=== PATIENT | male | born 1960 | race Caucasian/White ===

== ENCOUNTER 2016-07-20 09:00 | Inpatient (IN) | payer OTHER ==
[2016-07-20 09:58] VITALS: BMI 24.9
--- NOTE | 2016-07-20 11:54 | HP ---
CIWA Score - CIWA Score Nausea/Vomitin Muscle Tremors: 3 Anxiety: 3 Agitation: 3 Paroxysmal Sweats: 2 Orientation: 0-Oriented Tacttile Disturbances: 2-Mild Itch/Numbness/Burn Auditory Disturbances: 2-Mild Harshness/Frighten Visual Disturbances: 2-Mild Sensitivity Headache: 2-Mild CIWA-Ar Total Score: 22 Admission ROS BHS - HPI Chief Complaint: I NEED HELP TO STOP DRINKING ALCOHOL Allergies/Adverse Reactions: Allergies Allergy/AdvReac Type Severity Reaction Status Date / Time No Known Allergies Allergy Verified 07/20/16 10:37 History of Present Illness: THIS 55 YEARS OLD MALE WITH ALCOHOL DEPENDENCE,WITHDRAWAL SYMPTOM,LAST DETOX [facility] 09/05/12 TO 09/09/12 SYNCOPE ALCOHOL RELATED GERD INSOMNIA LONGEST PERIOD OF SOBRIETY 6 MONTHS Exam Limitations: No Limitations - Ebola screening Have you traveled outside of the country in the last 21 days: No Have you been sick,other than usual withdrawal symptoms: No - Review of Systems Constitutional: Loss of Appetite, Malaise, Night Sweats, Changes in sleep, Weakness, Unintentional Wgt. Loss EENT: reports: Nose Congestion Respiratory: reports: No Symptoms reported Cardiac: reports: Palpitations GI: reports: Diarrhea, Nausea, Vomiting, Abdominal cramping : reports: No Symptoms Reported Musculoskeletal: reports: Back Pain, Muscle Pain Neuro: reports: Headache, Tremors Endocrine: reports: No Symptoms Reported Hematology: reports: No Symptoms Reported Psychiatric: reports: Depressed, other (INSOMNIA) Patient History - Patient Medical History Hx Anemia: No Hx Asthma: No Hx Chronic Obstructive Pulmonary Disease (COPD): No Hx Cancer: No Hx Cardiac Disorders: No Hx Congestive Heart Failure: No Hx Hypertension: No Hx Hypercholesterolemia: No Hx Pacemaker: No HX Cerebrovascular Accident: No Hx Seizures: No Hx Diabetes: No Hx Gastrointestinal Disorders: Yes (acid reflux) Hx Genitourinary Disorders: No Hx Sexually Transmitted Disorders: Yes (gonorrhea at age 14) Hx Renal Disease (ESRD): No Hx Thyroid Disease: No Hx Human Immunodeficiency Virus (HIV): No (LAST 2014 NEGATIVE) Hx Hepatitis C: No Hx Depression: Yes (NO MED) Hx Suicide Attempt: Yes (cut left arm at age 17) Hx Bipolar Disorder: No Hx Schizophrenia: No Other Medical History: NO SUICIDAL,NO HOMICIDAL - Patient Surgical History Past Surgical History: Yes Hx Abdominal Surgery: Yes (left inguinal and umbilical hernia) Hx Appendectomy: No Hx Cholecystectomy: No Hx Genitourinary Surgery: No Hx Section: No Hx Orthopedic Surgery: No Other Surgical History: L inguinal hernia with mesh in 2010 Anesthesia Reaction: No - PPD History Previous Implant?: Yes Documented Results: Positive w/o proof PPD to be Administered?: No - Smoking Cessation Smoking history: Former smoker Have you smoked in the past 12 months: No Aproximately how many cigarettes per day: 0 If you are a former smoker, when did you quit?: 20 yrs. ago Cigars Per Day: 0 Hx Chewing Tobacco Use: No Initiated information on smoking cessation: No 'Breaking Loose' booklet given: 07/20/16 - Substance & Tx. History Hx Alcohol Use: Yes Hx Substance Use: No Substance Use Type: Alcohol Hx Substance Use Treatment: Yes ([facility] 09/05/12 TO 09/09/12) - Substances Abused Alcohol-beer Route: Oral Frequency: Daily Amount used: 1-2 6 pks. Age of first use: 13 Date of Last Use: 07/20/16 Family Disease History - Family Disease History Family Disease History: CA: Father (ALCOHOL,,LUNG CA), Other: Father, Mother (ALCOHOL), Brother (ALCOHOL,DSA), Sister (ALCOHOL,DSA) Admission Physical Exam S - Vital Signs Vital Signs: Vital Signs - 24 hr 07/20/16 09:55 Temperature 96.3 F L Pulse Rate 91 H Respiratory 20 Rate Blood Pressure 132/95 - Physical General Appearance: Yes: Moderate Distress, Tremorous, Irritable, Sweating, Anxious HEENTM: Yes: Nasal Congestion Respiratory: Yes: Lungs Clear Neck: Yes: Within Normal Limits Breast: Yes: Within Normal Limits Cardiology: Yes: Within Normal Limits, Regular Rhythm, Regular Rate, S1, S2 Abdominal: Yes: Within Normal Limits, Normal Bowel Sounds, Non Tender, Flat, Soft Genitourinary: Yes: Within Normal Limits Back: Yes: Muscle Spasm Musculoskeletal: Yes: Back pain, Joint Stiffness, Muscle Pain Extremities: Yes: Tremors 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 NML intact, Fully Oriented, Alert, Motor Strength 5/5 Integumentary: Yes: Dry Lymphatic: Yes: Within Normal Limits - Diagnostic (1) Alcohol dependence with uncomplicated withdrawal Current Visit: Yes Status: Acute (2) Syncope Current Visit: Yes Status: Acute (3) Weight loss Current Visit: Yes Status: Acute (4) Depression Current Visit: Yes Status: Acute (5) Insomnia Current Visit: Yes Status: Acute (6) Frequent falls Current Visit: Yes Status: Acute (7) History of inguinal hernia repair Current Visit: Yes Status: Acute (8) History of umbilical hernia repair Current Visit: Yes Status: Acute Cleared for Admission BHS - Detox or Rehab S Level of Care: Medically Managed Detox Regimen/Protocol: Librium BHS Breath Alcohol Content Breath Alcohol Content: 0.136 Urine Drug Screen - Results Drug Screen Negative: Yes
[2016-07-20] MEDS ORDERED: LOPERAMIDE HCL 2 MG CAPSULE PO PRN (12:06)
[2016-07-20] MEDS ORDERED: MENTHOL/PHENOL 1 EACH UD MM PRN (12:06)
[2016-07-20] MEDS ORDERED: chlordiazePOXIDE HCL 25 MG CAPSULE PO PRN (12:06)
[2016-07-20] MEDS ORDERED: MAG HYDROX/AL HYDROX/SIMETH 30 ML UNIT-DOSE CUP PO PRN (12:06)
[2016-07-20] MEDS ORDERED: IBUPROFEN 400 MG TABLET (FP) PO PRN (12:06)
[2016-07-20] MEDS ORDERED: MAGNESIUM CITRATE 300 ML BOTTLE PO PRN (12:06)
[2016-07-20] MEDS ORDERED: MAGNESIUM HYDROX 2400MG/30ML ORAL SUSPENSION 30 ML CUP PO PRN (12:06)
[2016-07-20] MEDS ORDERED: hydrOXYzine PAMOATE 50 MG CAPSULE (FP) PO PRN (12:06)
[2016-07-20] MEDS ORDERED: P-EPHED 60MG/TRIPROLIDI 2.5MG TABLET PO PRN (12:06)
[2016-07-20] MEDS ORDERED: guaiFENesin/D-METHORPHAN HB 10 ML UNIT-DOSE CUPS PO PRN (12:06)
[2016-07-20] MEDS ORDERED: chlordiazePOXIDE HCL 25 MG CAPSULE PO ONE (12:11)
[2016-07-20] MEDS: PANTOPRAZOLE 40 MG TABLET (FP) PO SCH (13:08)
[2016-07-20 16:28] LABS: URINE APPEARANCE CLEAR; URINE BILIRUBIN NEGATIVE (NEGATIVE); URINE BLOOD NEGATIVE (NEGATIVE); URINE COLOR STRAW; URINE GLUCOSE (UA) NEGATIVE (NEGATIVE); URINE KETONE NEGATIVE (NEGATIVE); URINE LEUK ESTERASE NEGATIVE (NEGATIVE); URINE NITRITE NEGATIVE (NEGATIVE); URINE PROTEIN NEGATIVE (NEGATIVE); URINE UROBILINOGEN NEGATIVE E.U./dl (0.2-1.0)
--- NOTE | 2016-07-20 16:42 | EKG ---
Test Reason : Blood Pressure : / mmHG Vent. Rate : 102 BPM Atrial Rate : 102 BPM P-R Int : 150 ms QRS Dur : 088 ms QT Int : 328 ms P-R-T Axes : 057 042 033 degrees QTc Int : 427 ms SINUS TACHYCARDIA OTHERWISE NORMAL ECG NO PREVIOUS ECGS AVAILABLE Confirmed by MD BRETT, CODY ([id number]) on 07/20/2016 4:41:42 PM Referred By: Jose Alberto Cancino Confirmed By:CODY WEST MD
[2016-07-20] MEDS: chlordiazePOXIDE HCL 25 MG CAPSULE PO SCH ×2 (17:16→22:09)
[2016-07-20] MEDS: diphenhydrAMINE HCL 50 MG CAPSULE PO PRN (22:09)
[2016-07-20] MEDS: THIAMINE HCL 100 MG TABLET (FP) PO SCH (22:09)
[2016-07-21] MEDS: chlordiazePOXIDE HCL 25 MG CAPSULE PO SCH ×4 (05:48→22:50)
[2016-07-21] MEDS: ACETAMINOPHEN 325 MG TABLET (FP) PO PRN ×2 (05:49→12:00)
[2016-07-21 10:07] LABS: MCH 33.6 pg (25.7-33.7); MCHC 33.5 g/dl (32.0-35.9); MEAN CELL VOLUME 100.1 fl (80-96); MEAN PLT VOLUME 10.1 fl (7.5-11.1); PLATELET COUNT 169 K/MM3 (134-434); RDW 13.3 % (11.9-15.9); WHITE BLOOD COUNT 7.7 K/mm3 (4.0-10.0)
[2016-07-21 10:20] LABS: ALBUMIN 3.9 g/dl (3.4-5.0); ANION GAP 14 (8-16); CALCIUM 8.2 mg/dL (8.5-10.1); CO2 21 mmol/L (21-32); GLUCOSE,RANDOM 104 mg/dL (74-106)
[2016-07-21 10:23] LABS: ALK PHOS 82 U/L (45-117); BILIRUBIN,TOTAL 0.7 mg/dL (0.2-1.0); CREATININE 0.9 mg/dL (0.7-1.3); SGOT/AST 161 U/L (15-37); SGPT/ALT 114 U/L (12-78); TOT PROT 7.5 g/dl (6.4-8.2)
[2016-07-21] MEDS: PRENATAL VITAMINS W/ FOLIC ACID TABLET (FP) PO SCH (11:13)
[2016-07-21] MEDS: PANTOPRAZOLE 40 MG TABLET (FP) PO SCH (11:13)
--- NOTE | 2016-07-21 11:26 | CONSULT ---
[facility] Psychiatric Consult - Data Date of interview: 07/21/16 Admission source: [facility] Identifying data: Readmission to [facility] for this 55 y/o male seeking detox treatment on for alcohol dependence.Patient is , a father of two,domiciled,unemployed and supported on welfare. Substance Abuse History: - Smoking Cessation. Smoking history: Former smoker. Have you smoked in the past 12 months: No. Aproximately how many cigarettes per day: 0. If you are a former smoker, when did you quit?: 20 yrs. ago. Cigars Per Day: 0. Hx Chewing Tobacco Use: No. Initiated information on smoking cessation: No. 'Breaking Loose' booklet given: 07/20/16. - Substance & Tx. History. Hx Alcohol Use: Yes. Hx Substance Use: No. Substance Use Type : Alcohol. Hx Substance Use Treatment: Yes ([facility] 09/05/12 TO 09/09/12). - Substances Abused. Alcohol-beer. Route: Oral. Frequency: Daily. Amount used: 1-2 6 pks. Age of first use: 13. Date of Last Use: 07/20/16. Confirmed by patient in my interview. Medical History: Remarkable for GERD,lower back pain,herniated disks in lumbar spine and a history of left inguinal/umbilical herniorraphy.Noted report of past treatment for gonorrhea (age 17). Psychiatric History: No reported history of psychiatric hospitalizations.Patient states that he is currently under the care of a private psychiatrist in the [place].Medicated with naltrexone and trazodone.Diagosed with Alcohol Dependence and Insomnia.Mr Peters admits to a remote history of suicide attempt (age 17) via self-mutilation (scars still visible on his left forearm). Physical/Sexual Abuse/Trauma History: Patient denies. Additional Comment: Drug Screen is negative. Mental Status Exam - Mental Status Exam Alert and Oriented to: Time, Place, Person Cognitive Function: Good Patient Appearance: Well Groomed Mood: Nervous, Anxious Affect: Mood Congruent Patient Behavior: Appropriate, Cooperative Speech Pattern: Clear, Appropriate Voice Loudness: Normal Thought Process: Goal Oriented Thought Disorder: Not Present Hallucinations: Denies Suicidal Ideation: Denies Homicidal Ideation: Denies Insight/Judgement: Fair Sleep: Poorly, Difficulty falling asleep Appetite: Good Muscle strength/Tone: Normal Gait/Station: Normal Psychiatric Findings - Problem List ([place] 1, 2,3) (1) Alcohol dependence with uncomplicated withdrawal Current Visit: Yes Status: Acute (2) History of inguinal hernia repair Current Visit: Yes Status: Chronic (3) History of umbilical hernia repair Current Visit: Yes Status: Chronic (4) Gastroesophageal reflux disease Current Visit: Yes Status: Chronic (5) Frequent falls Current Visit: Yes Status: Chronic (6) Insomnia Current Visit: Yes Status: Chronic - Initial Treatment Plan Initial Treatment Plan: Psychoeducation.Detoxification.Trazodone 50 mg po hs.Patient is made aware of the risk of priapism and advised to stop that medication/seek immediate medical help if painful/prolonged erection.Patient agrees with this plan.Observation.
--- NOTE | 2016-07-21 12:16 | PN ---
S CIWA - CIWA Score Nausea/Vomitin Muscle Tremors: 3 Anxiety: 3 Agitation: 2 Paroxysmal Sweats: 2 Orientation: 0-Oriented Tacttile Disturbances: 1-Very Mild Itch/Numbness Auditory Disturbances: 0-None Visual Disturbances: 2-Mild Sensitivity Headache: 2-Mild CIWA-Ar Total Score: 18 S Progress Note (SOAP) Subjective: shakes, sweats, diarrhea, irritability, unwitnessed bloody stool Objective: 07/21/16 12:14 Vital Signs - 8 hr 07/21/16 07/21/16 06:00 10:00 Temperature 98.1 F 97.9 F Pulse Rate 77 95 H Respiratory 18 16 Rate Blood Pressure 99/63 124/77 Laboratory Last Values WBC 7.7 K/mm3 (4.0-10.0) D 07/21/16 06:20 RBC 3.88 M/mm3 (4.00-5.60) L 07/21/16 06:20 Hgb 13.0 GM/dL (11.7-16.9) D 07/21/16 06:20 Hct 38.9 % (35.4-49) 07/21/16 06:20 MCV 100.1 fl (80-96) H 07/21/16 06:20 MCHC 33.5 g/dl (32.0-35.9) 07/21/16 06:20 RDW 13.3 % (11.9-15.9) 07/21/16 06:20 Plt Count 169 K/MM3 (134-434) D 07/21/16 06:20 MPV 10.1 fl (7.5-11.1) 07/21/16 06:20 Sodium 135 mmol/L (136-145) L 07/21/16 06:20 Potassium 4.2 mmol/L (3.5-5.1) 07/21/16 06:20 Chloride 100 mmol/L (98-107) 07/21/16 06:20 Carbon Dioxide 21 mmol/L (21-32) 07/21/16 06:20 Anion Gap 14 (8-16) 07/21/16 06:20 BUN 8 mg/dL (7-18) 07/21/16 06:20 Creatinine 0.9 mg/dL (0.7-1.3) 07/21/16 06:20 Creat Clearance w eGFR > 60 (>60) 07/21/16 06:20 Random Glucose 104 mg/dL (74-106) 07/21/16 06:20 Calcium 8.2 mg/dL (8.5-10.1) L 07/21/16 06:20 Total Bilirubin 0.7 mg/dL (0.2-1.0) 07/21/16 06:20 AST 161 U/L (15-37) H D 07/21/16 06:20 ALT 114 U/L (12-78) H D 07/21/16 06:20 Alkaline Phosphatase 82 U/L (45-117) 07/21/16 06:20 Total Protein 7.5 g/dl (6.4-8.2) 07/21/16 06:20 Albumin 3.9 g/dl (3.4-5.0) 07/21/16 06:20 Urine Color Straw 07/20/16 14:00 Urine Appearance Clear 07/20/16 14:00 Urine pH 6.0 (5.0-8.0) 07/20/16 14:00 Ur Specific [place] 1.005 (1.001-1.035) 07/20/16 14:00 Urine Protein Negative (NEGATIVE) 07/20/16 14:00 Urine Glucose (UA) Negative (NEGATIVE) 07/20/16 14:00 Urine Ketones Negative (NEGATIVE) 07/20/16 14:00 Urine Blood Negative (NEGATIVE) 07/20/16 14:00 Urine Nitrite Negative (NEGATIVE) 07/20/16 14:00 Urine Bilirubin Negative (NEGATIVE) 07/20/16 14:00 Urine Urobilinogen Negative E.U./dl (0.2-1.0) 07/20/16 14:00 Ur Leukocyte Esterase Negative (NEGATIVE) 07/20/16 14:00 Hepatitis C Antibody <0.1 s/co ratio (0.0-0.9) 07/20/16 12:00 Labs noted Assessment: 07/21/16 12:14 withdrawal sx pt. reports bloody stool this morning Plan: continue detox instructed pt to have staff inspect stool if further bleeding episodes
[2016-07-21] MEDS: diphenhydrAMINE HCL 50 MG CAPSULE PO PRN (22:50)
[2016-07-21] MEDS: THIAMINE HCL 100 MG TABLET (FP) PO SCH (22:50)
[2016-07-21] MEDS: traZODone HCL 50 MG TABLET (FP) PO SCH (22:50)
[2016-07-22] MEDS: chlordiazePOXIDE HCL 25 MG CAPSULE PO SCH ×2 (06:58→10:31)
[2016-07-22] MEDS: ACETAMINOPHEN 325 MG TABLET (FP) PO PRN (06:59)
[2016-07-22] MEDS ORDERED: IBUPROFEN 400 MG TABLET (FP) PO PRN (10:27)
[2016-07-22] MEDS: PRENATAL VITAMINS W/ FOLIC ACID TABLET (FP) PO SCH (10:31)
[2016-07-22] MEDS: PANTOPRAZOLE 40 MG TABLET (FP) PO SCH (10:31)
--- NOTE | 2016-07-22 11:39 | PN ---
S CIWA - CIWA Score Nausea/Vomitin Muscle Tremors: 3 Anxiety: 4-Mod. Anxious/Guarded Agitation: 4-Moderately Restless Paroxysmal Sweats: No Perspiration Orientation: 3-Disoriented Date>2 days Tacttile Disturbances: 1-Very Mild Itch/Numbness Auditory Disturbances: 0-None Visual Disturbances: 0-None Headache: 4-Moderately Severe CIWA-Ar Total Score: 22 BHS Progress Note (SOAP) Subjective: Restless, Tremors, Body Aches, Interrupted Sleep, Diarrhea Objective: 07/22/16 11:38 Vital Signs Temperature 97.0 F L 07/22/16 10:00 Pulse Rate 96 H 07/22/16 10:00 Respiratory Rate 18 07/22/16 10:00 Blood Pressure 113/80 07/22/16 10:00 O2 Sat by Pulse Oximetry (%) Laboratory Last Values WBC 7.7 K/mm3 (4.0-10.0) D 07/21/16 06:20 RBC 3.88 M/mm3 (4.00-5.60) L 07/21/16 06:20 Hgb 13.0 GM/dL (11.7-16.9) D 07/21/16 06:20 Hct 38.9 % (35.4-49) 07/21/16 06:20 MCV 100.1 fl (80-96) H 07/21/16 06:20 MCHC 33.5 g/dl (32.0-35.9) 07/21/16 06:20 RDW 13.3 % (11.9-15.9) 07/21/16 06:20 Plt Count 169 K/MM3 (134-434) D 07/21/16 06:20 MPV 10.1 fl (7.5-11.1) 07/21/16 06:20 Sodium 135 mmol/L (136-145) L 07/21/16 06:20 Potassium 4.2 mmol/L (3.5-5.1) 07/21/16 06:20 Chloride 100 mmol/L (98-107) 07/21/16 06:20 Carbon Dioxide 21 mmol/L (21-32) 07/21/16 06:20 Anion Gap 14 (8-16) 07/21/16 06:20 BUN 8 mg/dL (7-18) 07/21/16 06:20 Creatinine 0.9 mg/dL (0.7-1.3) 07/21/16 06:20 Creat Clearance w eGFR > 60 (>60) 07/21/16 06:20 Random Glucose 104 mg/dL (74-106) 07/21/16 06:20 Calcium 8.2 mg/dL (8.5-10.1) L 07/21/16 06:20 Total Bilirubin 0.7 mg/dL (0.2-1.0) 07/21/16 06:20 AST 161 U/L (15-37) H D 07/21/16 06:20 ALT 114 U/L (12-78) H D 07/21/16 06:20 Alkaline Phosphatase 82 U/L (45-117) 07/21/16 06:20 Total Protein 7.5 g/dl (6.4-8.2) 07/21/16 06:20 Albumin 3.9 g/dl (3.4-5.0) 07/21/16 06:20 Urine Color Straw 07/20/16 14:00 Urine Appearance Clear 07/20/16 14:00 Urine pH 6.0 (5.0-8.0) 07/20/16 14:00 Ur Specific [place] 1.005 (1.001-1.035) 07/20/16 14:00 Urine Protein Negative (NEGATIVE) 07/20/16 14:00 Urine Glucose (UA) Negative (NEGATIVE) 07/20/16 14:00 Urine Ketones Negative (NEGATIVE) 07/20/16 14:00 Urine Blood Negative (NEGATIVE) 07/20/16 14:00 Urine Nitrite Negative (NEGATIVE) 07/20/16 14:00 Urine Bilirubin Negative (NEGATIVE) 07/20/16 14:00 Urine Urobilinogen Negative E.U./dl (0.2-1.0) 07/20/16 14:00 Ur Leukocyte Esterase Negative (NEGATIVE) 07/20/16 14:00 RPR Titer Nonreactive (NONREACTIVE) 07/21/16 06:20 Hepatitis C Antibody <0.1 s/co ratio (0.0-0.9) 07/20/16 12:00 labs noted Assessment: Withdrawal Symptoms Plan: Continue Detox
[2016-07-22] MEDS: chlordiazePOXIDE 5 MG CAPSULE PO SCH ×2 (17:08→22:38)
[2016-07-22] MEDS: THIAMINE HCL 100 MG TABLET (FP) PO SCH (22:38)
[2016-07-22] MEDS: traZODone HCL 50 MG TABLET (FP) PO SCH (22:38)
[2016-07-23] MEDS: chlordiazePOXIDE 5 MG CAPSULE PO SCH ×2 (06:00→10:20)
[2016-07-23] MEDS: ACETAMINOPHEN 325 MG TABLET (FP) PO PRN ×2 (06:02→17:54)
[2016-07-23] MEDS: PRENATAL VITAMINS W/ FOLIC ACID TABLET (FP) PO SCH (10:20)
[2016-07-23] MEDS: PANTOPRAZOLE 40 MG TABLET (FP) PO SCH (10:20)
--- NOTE | 2016-07-23 11:49 | PN ---
BHS Progress Note (SOAP) Subjective: interrupted sleep, knee pains and left shoulder pains Objective: 07/23/16 11:52 Vital Signs Temperature 97.2 F L 07/23/16 10:16 Pulse Rate 96 H 07/23/16 10:16 Respiratory Rate 20 07/23/16 10:16 Blood Pressure 122/80 07/23/16 10:16 O2 Sat by Pulse Oximetry (%) Laboratory Tests 07/20/16 07/20/16 07/21/16 12:00 14:00 06:20 WBC 7.7 D RBC 3.88 L Hgb 13.0 D Hct 38.9 MCV 100.1 H MCHC 33.5 RDW 13.3 Plt Count 169 D MPV 10.1 Sodium Potassium Chloride Carbon Dioxide Anion Gap BUN Creatinine Creat Clearance w eGFR Random Glucose Calcium Total Bilirubin AST ALT Alkaline Phosphatase Total Protein Albumin Urine Color Straw Urine Appearance Clear Urine pH 6.0 Ur Specific [place] 1.005 Urine Protein Negative Urine Glucose (UA) Negative Urine Ketones Negative Urine Blood Negative Urine Nitrite Negative Urine Bilirubin Negative Urine Urobilinogen Negative Ur Leukocyte Esterase Negative RPR Titer Hepatitis C Antibody <0.1 07/21/16 07/21/16 06:20 06:20 WBC RBC Hgb Hct MCV MCHC RDW Plt Count MPV Sodium 135 L Potassium 4.2 Chloride 100 Carbon Dioxide 21 Anion Gap 14 BUN 8 Creatinine 0.9 Creat Clearance w eGFR > 60 Random Glucose 104 Calcium 8.2 L Total Bilirubin 0.7 AST 161 H D ALT 114 H D Alkaline Phosphatase 82 Total Protein 7.5 Albumin 3.9 Urine Color Urine Appearance Urine pH Ur Specific [place] Urine Protein Urine Glucose (UA) Urine Ketones Urine Blood Urine Nitrite Urine Bilirubin Urine Urobilinogen Ur Leukocyte Esterase RPR Titer Nonreactive Hepatitis C Antibody pt aox3 in nad ambulating Assessment: 07/23/16 11:53 withdrawl sx's juanito knee pain rt shoulder pain Plan: cont. deetox increase fluids xray kees juanito analgesic balm cane
[2016-07-23] MEDS: chlordiazePOXIDE HCL 10 MG CAPSULE PO SCH ×2 (17:53→22:22)
[2016-07-23] MEDS ORDERED: METHYL SALICYLATE/MENTHOL OINT 30 GM TUBE TP SCH (22:00)
[2016-07-23] MEDS: THIAMINE HCL 100 MG TABLET (FP) PO SCH (22:21)
[2016-07-23] MEDS: diphenhydrAMINE HCL 50 MG CAPSULE PO PRN (22:22)
[2016-07-23] MEDS: traZODone HCL 50 MG TABLET (FP) PO SCH (22:22)
[2016-07-24] MEDS: chlordiazePOXIDE HCL 10 MG CAPSULE PO SCH (05:40)
[2016-07-24 06:29] VITALS: BP 110/70; PULSE 65; TEMP 97
--- NOTE | 2016-07-24 09:01 | DS ---
[facility] Detox Discharge Summary Admission Date: 07/20/16 Discharge Date: 07/24/16 - History Present History: Alcohol Dependence - Physical Exam Results Vital Signs: Vital Signs Temperature 97 F L 07/24/16 06:28 Pulse Rate 65 07/24/16 06:28 Respiratory Rate 16 07/24/16 06:28 Blood Pressure 110/70 07/24/16 06:28 O2 Sat by Pulse Oximetry (%) - Treatment Hospital Course: Detox Protocol Followed, Detoxed Safely, Responded well, Discharged Condition Good, Rehab Referral Accepted - Medication Discharge Medications: Ambulatory Orders Omeprazole Magnesium [Prilosec (OTC)] 20 mg PO DAILY 09/05/12 Naltrexone HCl [Revia -] 50 mg PO DAILY 07/20/16 Trazodone HCl [Desyrel -] 50 mg PO HS 07/20/16 Trazodone HCl [Desyrel -] 50 mg PO HS #30 tablet 07/21/16 - Diagnosis (1) Alcohol dependence with uncomplicated withdrawal Current Visit: Yes Status: Chronic (2) Depression Current Visit: Yes Status: Chronic (3) Syncope Current Visit: Yes Status: Acute (4) Weight loss Current Visit: Yes Status: Acute (5) Frequent falls Current Visit: Yes Status: Chronic (6) Gastroesophageal reflux disease Current Visit: Yes Status: Chronic (7) History of inguinal hernia repair Current Visit: Yes Status: Chronic (8) History of umbilical hernia repair Current Visit: Yes Status: Chronic (9) Insomnia Current Visit: Yes Status: Chronic - AMA Did Patient Leave Against Medical Advice: No
[2016-07-24] MEDS: PRENATAL VITAMINS W/ FOLIC ACID TABLET (FP) PO SCH (09:11)
[2016-07-24] MEDS: PANTOPRAZOLE 40 MG TABLET (FP) PO SCH (09:11)
== END 2016-07-24 09:28 | disposition home or self-care (01) | DRG 775 ==
LOC: YASAS 09:00 → Y6N 11:50
PROVIDERS: ADMIT Internal Medicine; ATTEND Internal Medicine
PROC: HZ2ZZZZ Detoxification Services for Substance Abuse Treatment (ICD-10-PCS; principal; 2016-07-20)
DX: F10.230 Alcohol dependence with withdrawal, uncomplicated (principal); F32.9 Major depressive disorder, single episode, unspecified; G47.00 Insomnia, unspecified; K21.9 Gastro-esophageal reflux disease without esophagitis; M25.511 Pain in right shoulder; M25.562 Pain in left knee; M25.561 Pain in right knee; R29.6 Repeated falls; Z86.79 Personal history of other diseases of the circulatory system; Z87.898 Personal history of other specified conditions; Z87.438 Personal history of other diseases of male genital organs; Z87.891 Personal history of nicotine dependence; Z91.5 Personal history of self-harm
CPT/HCPCS: 36415; 71020-TC; 73560-TC-LT; 73560-TC-RT; 80053; 81003; 85027; 86593; 93005; 93010

== ENCOUNTER 2018-01-09 17:30 | Inpatient (IN) | payer OTHER ==
--- NOTE | 2018-01-09 17:37 | PDOC ---
History of Present Illness - General Chief Complaint: Weakness Stated Complaint: WEAKNESS Time Seen by Provider: 01/09/18 17:36 History Source: Patient Exam Limitations: No Limitations - History of Present Illness Initial Comments: Pt presenting via EMS for nausea, vomiting, diarrhea, and vertigo. Pt woke at 3 or 4 am last night with multiple episodes of NBNB vomiting and non-bloody loose brown stool. It continued until the early afternoon when he got off the bus and called EMS, due to "feeling like he was going to faint". He is feeling fatigued and has generalized abdominal pain which started after the vomiting. Pt ate a hot dog and radishes last night. Drinks 6-8 beers per day and also feels that he is currently withdrawing from alcohol (tremors). On the ambulance, pt received ~600 mL IVF, which pt states has improved his symptoms. Pt denies recent fevers/chils, syncope, headache, chest pain, SOB, urinary symptoms, joint pain, or leg swelling. He denies recent travel or sick contacts. 01/09/18 18:31 Past History - Travel Traveled outside of the country in the last 30 days: No Close contact w/someone who was outside of country & ill: No - Past Medical History Allergies/Adverse Reactions: Allergies Allergy/AdvReac Type Severity Reaction Status Date / Time No Known Allergies Allergy Verified 01/09/18 17:40 Home Medications: Ambulatory Orders Omeprazole Magnesium [Prilosec (OTC)] 20 mg PO DAILY 09/05/12 Anemia: No Asthma: No Cancer: No Cardiac Disorders: No CVA: No COPD: No CHF: No Diabetes: No GI Disorders: Yes (acid reflux) Disorders: No HTN: No Hypercholesterolemia: No Kidney Stones: No Seizures: No Thyroid Disease: No - Surgical History Abdominal Surgery: Yes (left inguinal and umbilical hernia) Appendectomy: No Cholecystectomy: No Orthopedic Surgery: No - Reproductive History Testicular Surgery: No - Suicide/Smoking/Psychosocial Hx Smoking History: Former smoker Have you smoked in the past 12 months: No Number of Cigarettes Smoked Daily: 0 If you are a former smoker, when did you quit?: 20 yrs. ago Cigars Per Day: 0 'Breaking Loose' booklet given: 07/20/16 Hx Alcohol Use: Yes Drug/Substance Use Hx: No Substance Use Type: Alcohol Hx Substance Use Treatment: Yes ([facility] 09/05/12 TO 09/09/12) Review of Systems - Review of Systems Able to Perform ROS?: Yes Is the patient limited Fijian proficient: No Constitutional: Yes: Weakness (feeling like legs were weak since vomiting and diarrhea), Weight Stable. No: Chills, Diaphoresis, Fever, Loss of Appetite, Night Sweats HEENTM: No: Blurred Vision, Recent change in vision, Nose Congestion, Difficulty Swallowing Respiratory: No: Cough, Orthopnea, Shortness of Breath, Wheezing, Hemoptysis Cardiac (ROS): Yes: Lightheadedness (since n/v/d). No: Chest Pain, Edema, Irregular Heart Rate, Palpitations, Syncope, Chest Tightness ABD/GI: Yes: Diarrhea, Nausea, Poor Fluid Intake (has not been tolerating PO intake since n/v/d). No: Abdominal Distended, Abd. Pain w/ defecation, Blood Streaked Bowels, Constipated, Difficulty Swallowing, Poor Appetite, Rectal Bleeding, Vomiting, Abdominal cramping : No: Burning, Dysuria, Frequency, Hematuria, Pain, Urgency Musculoskeletal: No: Back Pain, Joint Pain, Joint Swelling, Muscle Pain, Muscle Weakness, Neck Pain Integumentary: No: Bruising, Rash, Sweating Neurological: Yes: Weakness, Unsteady Gait (since n/v/d), Dizziness (feeling like "room was spinning"). No: Headache, Numbness, Paresthesia, Pre-Existing Deficit, Seizure, Tingling, Tremors, Ataxia Psychiatric: No: Sleep Pattern Change, Change in Appetite Endocrine: No: Increased Urine, Change in Weight Hematologic/Lymphatic: No: Anemia, Blood Clots, Easy Bleeding All Other Systems: Reviewed and Negative *Physical Exam - Physical Exam General Appearance: Yes: Nourished, Appropriately Dressed, Mild Distress (Pt vitals stable. Having current NBNB vomiting on exam. Appears to be withdrawing from alcohol.). No: Alcohol on Breath HEENT: positive: EOMI, MARIAELENA, Normal Voice, Symmetrical, Pharynx Normal, Hearing Grossly Normal, Other (tongue fasciculations). negative: Normal ENT Inspection , Scleral Icterus (R), Scleral Icterus (L), Pharyngeal Erythema, Tonsillar Exudate, Tonsillar Erythema, Rhinorrhea, Thrush Neck: positive: Trachea midline, Supple. negative: Tender, Normal Thyroid, Rigid, Decreased range of motion, Lymphadenopathy (R), Lymphadenopathy (L) Respiratory/Chest: positive: Lungs Clear, Normal Breath Sounds. negative: Chest Tender, Respiratory Distress, Accessory Muscle Use, Crackles, Stridor, Wheezing Cardiovascular: positive: Regular Rhythm, S1, S2, Tachycardia (tachycardic 120s- 130 during exam w vomiting). negative: Regular Rate, Edema, Murmur Vascular Pulses: Carotid (R): 4+, Carotid (L): 4+ Gastrointestinal/Abdominal: positive: Normal Bowel Sounds, Flat, Soft. negative : Tender, Organomegaly, Pulsatile Mass, Distended, Guarding, Rebound, Tenderness Rectal Exam: positive: deferred Lymphatic: negative: Adenopathy, Tenderness Musculoskeletal: positive: Normal Inspection. negative: CVA Tenderness Extremity: positive: Normal Capillary Refill, Normal Inspection, Normal Range of Motion, Pelvis Stable, Other (slight increased skin turgor, normal cap refill ). negative: Tender, Coldness, Cyanosis, Pedal Edema Integumentary: positive: Normal Color, Warm, Diaphoresis (mild diaphoresis). 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 negative: EOM Palsy, Facial Droop, Sensory Deficit, Confused Heart Score/ECG Review - ECG Impressions Normal ECG: No Non-specific ST Elevation: No Ischemic Changes: No Bradycardia: No Tachycardia: Sinus Torsades dg Pointes: No WPW: No Comment:: 01/09/18 23:48 sinus tachycardia ED Treatment Course - LABORATORY CBC & Chemistry Diagram: 01/09/18 18:30 01/09/18 18:30 Medical Decision Making - Medical Decision Making Pt presenting via EMS for nausea, vomiting, diarrhea, and vertigo. Pt woke at 3 or 4 am last night with multiple episodes of vomiting and diarrhea. It continued until the early afternoon when he got off the bus and called EMS. Pt ate a hot dog last night. Drinks 6-8 beers per day and also feels that he is withdrawing. Pt presents tachycardic (110s), normotensive, with b/l hand tremors and tongue fasciculations. No abdominal tenderness on exam. Considering withdrawal and gastroenteritis. ECG WNL. Has received 600 mL IVF on ambulance. Ordered basic labs, Mg/Phos, coags, troponin (r/o ACS), UA and culture. Providing 10 mg IV reglan for nausea and vertigo, banana bag, 20 mg IV pepcid, 30 mg Maalox, viscous lidocaine, and 2 mg ativan. Awaiting labs. Pt lying comfortably. 01/09/18 18:20 WBC 18.1, AST:ALT ~2:1 ratio, lipase 475, Cr 1.6 Banana bag running. Sent urine sample for UA and culture. Paging hospitalist for inpatient admission. 01/09/18 21:56 Spoke to hospitalist, will admit to med/surg with Dr. Arredondo. 01/09/18 22:25 UA negative for infection. Hospitalist has been at bedside for admission. WBC increase likely due to gastroenteritis/viral syndrome plus current alcohol withdrawal. 01/09/18 23:29 *DC/Admit/Observation/Transfer Diagnosis at time of Disposition: Alcohol withdrawal Qualifiers: Complication of substance-induced condition: uncomplicated Qualified Code(s): F10.230 - Alcohol dependence with withdrawal, uncomplicated Diarrhea Qualifiers: Diarrhea type: unspecified type Qualified Code(s): R19.7 - Diarrhea, unspecified Vomiting Qualifiers: Vomiting type: unspecified Vomiting Intractability: non-intractable Nausea presence: with nausea Qualified Code(s): R11.2 - Nausea with vomiting, unspecified - Discharge Dispostion Condition at time of disposition: Improved Decision to Admit order: Yes - Referrals - Patient Instructions - Post Discharge Activity
--- NOTE | 2018-01-09 17:42 | PDOC ---
Attending Attestation - HPI HPI: 01/09/18 19:43 Patient is a 57 year old male with a significant past medical history of Gerd, alcohol dependence, who presents to the ED with complaints of nausea/vomiting that began this morning at 4 am. Patient reports going to job interview in the city this morning, stating while on the bus back home he experienced intermittent nausea, and multiple episodes of vomiting, prompting him to call EMS to be brought into the ED for further evaluation. He reports experiencing associated symptoms of loose brown stool, and bilateral hand tremors . Patient reports drinking 6 beers everyday, stating his last alcohol beverage was last night. He reports symptoms feel similar to past episodes of alcohol withdrawal. Denies chest pain, Sob. Denies nausea, vomiting. Denies contact with sick individuals, out of state travelling. Denies fevers, chills. Denies any other symptoms. Allergies: None Social history: Current alcohol use. No smoking. No illicit drugs. Surgical history: None PMD: None - Physicial Exam PE: 01/09/18 19:43 GENERAL: Awake, alert, and fully oriented, in no acute distress HEAD: No signs of trauma EYES: PERRLA, EOMI, sclera anicteric, conjunctiva clear ENT: +Tongue fasciculation. Auricles normal inspection, hearing grossly normal, nares patent, Moist mucosa NECK: Normal ROM, supple, no lymphadenopathy, JVD, or masses LUNGS: Breath sounds equal, clear to auscultation bilaterally. No wheezes, and no crackles HEART: +Tachycardic. Regular rate, normal S1 and S2, no murmurs, rubs or gallops ABDOMEN: Soft, nontender, normoactive bowel sounds. No guarding, no rebound. No masses EXTREMITIES: +Piloerection on arms bilaterally. +Bilateral hand tremors. Normal range of motion, no edema. No clubbing or cyanosis. No cords, erythema, or tenderness NEUROLOGICAL: Cranial nerves II through XII grossly intact. Normal speech, normal gait SKIN: Warm, Dry, normal turgor, no rashes or lesions noted. <Andres Diane - Last Filed: 01/09/18 19:43> - Resident Resident Name: Delmy Castaneda - ED Attending Attestation I have performed the following: I have examined & evaluated the patient, The case was reviewed & discussed with the resident, I agree w/resident's findings & plan, Exceptions are as noted - Medical Decision Making 01/09/18 17:41 I, Dr. Samantha Thomas, DO, attest that this document has been prepared under my direction and personally reviewed by me in its entirety. I further attest, that it accurately reflects all work, treatment, procedures and medical decision -making performed by me. 01/09/18 18:29 57yo male with n/v/d and alcohol withdrawal -last drink was last night - 6 beers -ate hotdogs last night -today with tremors and tachy and n/v -tongue fasciculations on exam -concern for alcohol withdrawal vs gastroenteritis -will send labs, ekg -abd is nontender -will check electrolytes -no hx of alcohol withdrawal seizures -has gone to detox in the past -will medicate with ativan for alcohol withdrawal -will medicate with banana bag -will monitor and reassess 01/09/18 22:35 cxr clear 01/09/18 22:35 elevated wbc - suspect gastroenteritis assoc with alcohol withdrawal pt will need admission for alcohol withdrawal 01/09/18 22:35 resident discussed the case with IM who accepts pt to service <Samantha Thomas - Last Filed: 01/09/18 22:37> Heart Score/ECG Review - ECG Intrepretation Comment:: 01/09/18 18:11 sinus tach at 114, nl axis, nl interval, no acute st/t wave findings <Samantha Thomas - Last Filed: 01/09/18 22:37>
[2018-01-09] MEDS ORDERED: MAG HYDROX/AL HYDROX/SIMETH 30 ML UNIT-DOSE CUP PO ONE (18:00)
[2018-01-09] MEDS ORDERED: SODIUM CHLORIDE 1,000 ML IV STA (18:00)
[2018-01-09] MEDS ORDERED: FAMOTIDINE 20 MG/50 ML IVPB 20 MG/50 ML MG IVPB ONE ×2 (18:01→18:22)
[2018-01-09] MEDS ORDERED: LIDOCAINE VISCOUS 2% ORAL/TOP 20 ML UNIT-DOSE CUP MM ONE (18:02)
[2018-01-09] MEDS ORDERED: FOLIC ACID INJECTION - 1 MG, THIAMINE HCL 100 MG, MULTIVIT INJECTION ADULT 10 ML in SOD... IVPB ONE (18:11)
[2018-01-09] MEDS ORDERED: METOCLOPRAMIDE HCL INJECTION 10 MG/2 ML VIAL IVPUSH ONE (18:11)
[2018-01-09] MEDS ORDERED: LORazepam 2 MG/ML SDV VIAL ONE (18:22)
[2018-01-09] MEDS ORDERED: METOCLOPRAMIDE HCL INJECTION 10 MG/2 ML VIAL ONE (18:22)
[2018-01-09] MEDS ORDERED: MAG HYDROX/AL HYDROX/SIMETH 30 ML UNIT-DOSE CUP ONE (18:22)
[2018-01-09 18:56] LABS: BASO % 0.3 % (0-2.0); HEMATOCRIT 38.8 % (35.4-49); HEMOGLOBIN 13.1 GM/dL (11.7-16.9); LYMPH % 1.3 % (8-40); MCH 33.2 pg (25.7-33.7); MCHC 33.9 g/dl (32.0-35.9); MEAN PLT VOLUME 9.3 fl (7.5-11.1); MONO % 5.1 % (3.8-10.2); NEUT % 93.3 % (42.8-82.8); PLATELET COUNT 198 K/MM3 (134-434); RBC 3.96 M/mm3 (4.00-5.60); RDW 13.3 % (11.9-15.9); WHITE BLOOD COUNT 18.1 K/mm3 (4.0-10.0)
[2018-01-09 19:23] LABS: ALBUMIN 4.2 g/dl (3.4-5.0); ANION GAP 17 (8-16); BILIRUBIN,TOTAL 1.1 mg/dL (0.2-1.0); BLOOD UREA NITROGEN 17 mg/dL (7-18); CALCIUM 9.3 mg/dL (8.5-10.1); CHLORIDE 106 mmol/L (98-107); CO2 21 mmol/L (21-32); CREATININE 1.6 mg/dL (0.7-1.3); GLUCOSE,RANDOM 92 mg/dL (74-106); INR 0.97 (0.83-1.09); MAGNESIUM 1.8 mg/dL (1.8-2.4); PHOSPHOROUS 5.1 mg/dL (2.5-4.9); POTASSIUM 5.3 mmol/L (3.5-5.1); SGOT/AST 69 U/L (15-37); SGPT/ALT 41 U/L (12-78); SODIUM 144 mmol/L (136-145); TOT PROT 8.1 g/dl (6.4-8.2)
[2018-01-09 19:24] LABS: ALK PHOS 71 U/L (45-117)
[2018-01-09 19:25] LABS: ACTIVATED PTT 24.8 SECONDS (25.2-36.5)
[2018-01-09 19:35] LABS: LIPASE 475 U/L (73-393)
[2018-01-09 20:59] LABS: PLATELET ESTIMATE ADEQUATE
[2018-01-09 22:44] LABS: URINE APPEARANCE CLEAR; URINE BILIRUBIN NEGATIVE (<2.0 mg/dL); URINE COLOR YELLOW; URINE GLUCOSE (UA) NEGATIVE (NEGATIVE); URINE KETONE 1+ (NEGATIVE); URINE LEUK ESTERASE NEGATIVE (NEGATIVE); URINE NITRITE NEGATIVE (NEGATIVE); URINE UROBILINOGEN NEGATIVE mg/dL (0.2-1.0)
[2018-01-09 22:46] LABS: URINE PROTEIN 1+ (NEGATIVE)
[2018-01-09] MEDS: SODIUM CHLORIDE 1,000 ML IV SCH (22:59)
[2018-01-09 23:04] LABS: EPI CELLS RARE /HPF (FEW); URINE HYALINE CAST 16 /lpf; URINE MUCUS RARE
--- NOTE | 2018-01-09 23:11 | PN ---
Teaching Attending Note Name of Resident: Veronica Martines ATTENDING PHYSICIAN STATEMENT I saw and evaluated the patient. I reviewed the resident's note and discussed the case with the resident. I agree with the resident's findings and plan as documented. SUBJECTIVE: Patient is a 57 year old man with a significant past medical history of GERD, alcohol dependence, who presents to the ED with complaints of nausea/vomiting that began this morning at 4 am. Patient reports going to job interview in the city this morning, stating while on the bus back home he experienced intermittent nausea, and multiple episodes of vomiting, prompting him to call EMS to be brought into the ED for further evaluation. he thinks he ate some "rotten food" before the GI symptoms started. He reports experiencing associated symptoms of loose brown stool, and bilateral hand tremors . Patient reports drinking 6 beers everyday, stating his last alcohol beverage was last night. He reports symptoms feel similar to past episodes of alcohol withdrawal. OBJECTIVE: Alert Vital Signs Period Temp Pulse Resp BP Sys/Wright Pulse Ox Last 24 Hr 99.1 F 90-118 16-19 126-132/77-81 99-100 HEENT: No Jaundice, eye redness or discharge, PERRLA, EOMI. Normocephalic, atraumatic. External ears are normal and hearing is grossly intact. No nasal discharge. Neck: Supple, nontender. No palpable adenopathy or thyromegaly. No JVD Chest: Good effort. Clear to auscultation and percussion. Heart: Regular. No S3, rub or murmur Abdomen: Not distended, soft, tender lower abdomen and no HSM. No rebound or guarding. Normoactive bowel sounds. Ext: Peripheral pulses intact. No leg edema. Skin: Warm and dry. No petechiae, rash or ecchymosis. Neuro: Alert. Tremulous; Oriented x3. CN 2-12 grossly intact. Sensation grossly intact in all four extremities and DTR are symmetric. Current Medications Generic Name Dose Route Start Last Admin Trade Name Freq PRN Reason Stop Dose Admin Heparin Sodium (Porcine) 5,000 unit 01/10/18 06:00 Heparin - SQ TID MARISSA Folic Acid 1 mg/ Thiamine HCl 1,000 mls @ 125 mls/hr 01/09/18 18:11 01/09/18 18:43 100 mg/ Multivitamins/Minerals IVPB 01/10/18 02:10 125 mls/hr 10 ml/ Sodium Chloride ONCE ONE Administration Sodium Chloride 1,000 mls @ 100 mls/hr 01/09/18 22:30 01/09/18 22:59 Normal Saline - IV 100 mls/hr ASDIR MARISSA Administration Home Medications Medication Instructions Recorded Omeprazole Magnesium [Prilosec 20 mg PO DAILY 09/05/12 (OTC)] Abnormal Lab Results 01/09/18 01/09/18 01/09/18 18:30 18:30 18:30 WBC 18.1 H RBC 3.96 L MCV 98.0 H Absolute Neuts (auto) 16.8 H Neutrophils % 93.3 H Neutrophils % (Manual) 92.0 H Lymphocytes % 1.3 L Lymphocytes % (Manual) 2.0 L PTT (Actin FS) 24.8 L Potassium 5.3 H D Anion Gap 17 H Creatinine 1.6 H Phosphorus 5.1 H Total Bilirubin 1.1 H AST 69 H D Lipase 475 H Urine Protein Urine Ketones 01/09/18 21:50 WBC RBC MCV Absolute Neuts (auto) Neutrophils % Neutrophils % (Manual) Lymphocytes % Lymphocytes % (Manual) PTT (Actin FS) Potassium Anion Gap Creatinine Phosphorus Total Bilirubin AST Lipase Urine Protein 1+ H Urine Ketones 1+ H ASSESSMENT AND PLAN: 1. Alcohol withdrawal syndrome - Getting banana bag. Will implement [facility] alcohol withdrawal protocol and fall precautions. Treat with thiamine and folic acid and monitor electrolytes (Ca,Mg,K,P). 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 Symptoms of gastroenteritis of unknown cause - may have alcoholic pancreatitis or food poisoning. But low grade fever and leukocytosis with left shift is concerning. Will get stool studies, abd/pelvic CT and treat with Levofloxacin and Flagyl for now. Will continue IV fluids and zofran. Mild hyperkalemia is unexplained. Will repeat after adequate hydration. He has no EKG changes of hyperkalemia. 2. MAYRA - May be due to fluid loss. Will consult nephrology and avoid nephrotoxic agents such as NSAIDS, aminoglycosides, contrast dyes and certain Alternative medicine products. 3. DVT prophylaxis - Heparin 5000u sq tid. 4. Advance directives - Full code
[2018-01-09] MEDS ORDERED: ONDANSETRON 4 MG/2 ML VIAL IVPB SCH (23:45)
--- NOTE | 2018-01-10 00:01 | HP ---
CHIEF COMPLAINT:nausea and vomiting PCP: HISTORY OF PRESENT ILLNESS: Patient is a 57 year old male with past medical history of GERD and alcohol abuse, presented with multiple episodes of vomiting since this morning. Last night patient had 6 big bottles of beer and ate a hotdog that he thought was rotten. A few hours after, at 4am, he woke up not feeling well and vomited clear yellow liquid and an episode of watery diarrhea. This was followed by a 7 more episodes of nonbloody, nonbilious vomiting throughout the day. In the afternoon, patient was feeling weak and diaphoretic, and reported that he felt "hot and cold at the same time". He called EMS and was brought to the ED where he was noted to have tremors. Patient denies chest pain, SOB, abdominal pain, dysuria. ER course was notable for: (1)WBC 18.1, bands 93% (2)K 5.3, Cr 1.6, Lipase 475 Recent Travel:denies any recent travel PAST MEDICAL HISTORY: GERD alcohol abuse PAST SURGICAL HISTORY: hernia repair (2016) Social History: Smoking:nonsmoker Alcohol:drinks 6-8 bottles of beer everyday for 35 years Drugs: denies illicit drug use Family History: Father - HTN, [place] Mother - alcohol abuse Allergies No Known Allergies Allergy (Verified 01/09/18 17:40) HOME MEDICATIONS: Home Medications Medication Instructions Recorded Omeprazole Magnesium [Prilosec 20 mg PO DAILY 09/05/12 (OTC)] REVIEW OF SYSTEMS CONSTITUTIONAL: chills, diaphoresis, generalized weakness Absent: fever, malaise, loss of appetite, weight change HEENT: Absent: rhinorrhea, nasal congestion, throat pain, throat swelling, difficulty swallowing, mouth swelling, ear pain, eye pain, visual changes CARDIOVASCULAR: Absent: chest pain, syncope, palpitations, irregular heart rate, lightheadedness , peripheral edema RESPIRATORY: Absent: cough, shortness of breath, dyspnea with exertion, orthopnea, wheezing, stridor, hemoptysis GASTROINTESTINAL: Absent: abdominal pain, abdominal distension, nausea, vomiting, diarrhea, constipation, melena, hematochezia GENITOURINARY: Absent: dysuria, frequency, urgency, hesitancy, hematuria, flank pain, genital pain MUSCULOSKELETAL: Absent: myalgia, arthralgia, joint swelling, back pain, neck pain SKIN: Absent: rash, itching, pallor HEMATOLOGIC/IMMUNOLOGIC: Absent: easy bleeding, easy bruising, lymphadenopathy, frequent infections ENDOCRINE: Absent: unexplained weight gain, unexplained weight loss, heat intolerance, cold intolerance NEUROLOGIC: Absent: headache, focal weakness or paresthesias, dizziness, unsteady gait, seizure, mental status changes, bladder or bowel incontinence PSYCHIATRIC: Absent: anxiety, depression, suicidal or homicidal ideation, hallucinations. PHYSICAL EXAMINATION Vital Signs - 24 hr 01/09/18 01/09/18 01/09/18 17:32 18:12 18:43 Temperature 99.1 F Pulse Rate 90 Pulse Rate [ 118 H Apical] Respiratory 16 19 Rate Blood Pressure 126/81 Blood Pressure 132/77 [Right Arm] O2 Sat by Pulse 100 99 100 Oximetry (%) GENERAL: Awake, alert, and fully oriented, in no acute distress. HEAD: Normal with no signs of trauma. EYES: PERRLA, EOMI, sclera anicteric, conjunctiva clear. EARS, NOSE, THROAT: Ears normal, nares patent, oropharynx clear without exudates. Moist mucous membranes. NECK: Normal range of motion, supple without lymphadenopathy, JVD, or masses. LUNGS: Breath sounds equal, clear to auscultation bilaterally. HEART: Regular rate and rhythm, normal S1 and S2 without murmur, rub or gallop. ABDOMEN: Soft, +mild tenderness at RLQ/LLQ, not distended, normoactive bowel sounds. MUSCULOSKELETAL: Normal range of motion at all joints. No bony deformities or tenderness. UPPER EXTREMITIES: 2+ pulses, warm, well-perfused. No cyanosis. No clubbing. No peripheral edema. LOWER EXTREMITIES: 2+ pulses, warm, well-perfused. No calf tenderness. No peripheral edema. NEUROLOGICAL: Cranial nerves II-XII intact. Normal speech. Normal gait. PSYCHIATRIC: Cooperative. Good eye contact. Appropriate mood and affect. SKIN: Warm, dry, normal turgor, no rashes or lesions. Laboratory Results - last 24 hr 01/09/18 01/09/18 01/09/18 18:30 18:30 18:30 WBC 18.1 H RBC 3.96 L Hgb 13.1 Hct 38.8 MCV 98.0 H MCH 33.2 MCHC 33.9 RDW 13.3 Plt Count 198 MPV 9.3 Absolute Neuts (auto) 16.8 H Total Counted 100 Neutrophils % 93.3 H Neutrophils % (Manual) 92.0 H Band Neutrophils % 1.0 Lymphocytes % 1.3 L Lymphocytes % (Manual) 2.0 L Monocytes % 5.1 Monocytes % (Manual) 4 Eosinophils % 0.0 Basophils % 0.3 Nucleated RBC % 0 Differential Comment Man diff performed Platelet Estimate Adequate Platelet Comment PT with INR 11.00 INR 0.97 PTT (Actin FS) 24.8 L Sodium 144 Potassium 5.3 H D Chloride 106 Carbon Dioxide 21 Anion Gap 17 H BUN 17 Creatinine 1.6 H Creat Clearance w eGFR 44.62 Random Glucose 92 Calcium 9.3 Phosphorus 5.1 H Magnesium 1.8 Total Bilirubin 1.1 H AST 69 H D ALT 41 D Alkaline Phosphatase 71 Troponin I Total Protein 8.1 Albumin 4.2 Lipase 475 H Urine Color Urine Appearance Urine pH Ur Specific [place] Urine Protein Urine Glucose (UA) Urine Ketones Urine Blood Urine Nitrite Urine Bilirubin Urine Urobilinogen Ur Leukocyte Esterase Urine WBC (Auto) Urine RBC (Auto) Ur Epithelial Cells Hyaline Casts Urine Mucus 01/09/18 01/09/18 18:30 21:50 WBC RBC Hgb Hct MCV MCH MCHC RDW Plt Count MPV Absolute Neuts (auto) Total Counted Neutrophils % Neutrophils % (Manual) Band Neutrophils % Lymphocytes % Lymphocytes % (Manual) Monocytes % Monocytes % (Manual) Eosinophils % Basophils % Nucleated RBC % Differential Comment Platelet Estimate Platelet Comment PT with INR INR PTT (Actin FS) Sodium Potassium Chloride Carbon Dioxide Anion Gap BUN Creatinine Creat Clearance w eGFR Random Glucose Calcium Phosphorus Magnesium Total Bilirubin AST ALT Alkaline Phosphatase Troponin I < 0.02 Total Protein Albumin Lipase Urine Color Yellow Urine Appearance Clear Urine pH 6.0 Ur Specific [place] 1.017 Urine Protein 1+ H Urine Glucose (UA) Negative Urine Ketones 1+ H Urine Blood Negative Urine Nitrite Negative Urine Bilirubin Negative Urine Urobilinogen Negative Ur Leukocyte Esterase Negative Urine WBC (Auto) 1 Urine RBC (Auto) <1 Ur Epithelial Cells Rare Hyaline Casts 16 Urine Mucus Rare CBC, BMP 01/09/18 18:30 01/09/18 18:30 ASSESSMENT/PLAN: Patient is a 57 year old male with past medical history of GERD and alcohol abuse, presented with multiple episodes of vomiting since this morning. #Nausea and vomiting: elevated WBC (18.1) with left shift -probably gastroenteritis due to food poisoning and alcohol withdrawal -Lipase at 475, no abdominal pain - rule out acute pancreatitis -CT of abdomen and pelvis ordered. -Will start Levaquin 500mg and Flagyl 500mg IV -IV fluids started -Zofran 40 mg ordered. -NPO for now. #Alcohol withdrawal syndrome: Patient presenting with b/l hand tremors and tongue fasciculations -CIWA protocol -Ativan protocol started. -Thiamine and Folic acid ordered. -Fall risk precautions -NPO (aspiration precaution) #MAYRA: Cr 1.6 -may be due to dehydration -- IVF started. -Monitor Cr -avoid nephrotoxic agents - NSAIDs, aminoglycosides, contrast -Dr. Jon consult appreciated. #Hyperkalemia: 5.3 -IV fluids -EKG ordered -repeat K in the AM #GERD -Protonix 40 mg #FEN -IV NS (0.9%) at 100ml/hr -hyperkalemia, routine bmp monitoring -NPO for now #Prophylaxis -Heparin 5000 units sq tid #Disposition -admit to med-surg -full code Visit type - Emergency Visit Emergency Visit: Yes ED Registration Date: 01/09/18 Care time: The patient presented to the Emergency Department on the above date and was hospitalized for further evaluation of their emergent condition. - New Patient This patient is new to me today: Yes Date on this admission: 01/10/18 - Critical Care Critical Care patient: No Hospitalist Screening - Colonoscopy Questionnaire Colonoscopy Questionnaire: Colonoscopy Questionnaire - Patient: 50 - 75 years old and never had a screening colonoscopy: Unknown History of colon or rectal polyps, or CA: Unknown History of IBD, Crohn's disease or UC: Unknown History of abdominal radiation therapy as a child: Unknown - Relative: 1 with colon or rectal CA, or polyps at age 60 or younger: Unknown Colon or rectal CA diagnosed at age 45 or younger: Unknown Multiple relatives with colon or rectal CA: Unknown - Outcome: Screening Result: Negative Screen
[2018-01-10] MEDS ORDERED: LORazepam 2 MG/ML SDV VIAL ONE ×2 (02:04→03:05)
[2018-01-10] MEDS: LORazepam 2 MG/ML SDV VIAL IVPUSH SCH ×2 (03:04→10:35)
[2018-01-10] MEDS: ONDANSETRON 4 MG/2 ML VIAL IVPB SCH ×4 (03:04→23:06)
[2018-01-10] MEDS ORDERED: ONDANSETRON 4 MG/2 ML VIAL ONE (03:06)
[2018-01-10] MEDS ORDERED: PIPERACILLIN/TAZOB 3.375 GM 3.375 GM/50 ML BAG IVPB ONE (03:08)
[2018-01-10] MEDS: HEPARIN NA (PORCINE) 5,000 UNITS/ML 1ML VIAL SQ SCH ×3 (06:29→23:06)
[2018-01-10 06:39] LABS: HEMATOCRIT 33.4 % (35.4-49); HEMOGLOBIN 11.7 GM/dL (11.7-16.9); MCH 34.1 pg (25.7-33.7); MCHC 34.9 g/dl (32.0-35.9); MEAN CELL VOLUME 97.9 fl (80-96); MEAN PLT VOLUME 8.9 fl (7.5-11.1); PLATELET COUNT 150 K/MM3 (134-434); RBC 3.41 M/mm3 (4.00-5.60); RDW 13.2 % (11.9-15.9); WHITE BLOOD COUNT 9.9 K/mm3 (4.0-10.0)
[2018-01-10] MEDS ORDERED: HEPARIN NA (PORCINE) 5,000 UNITS/ML 1ML VIAL ONE (06:52)
[2018-01-10 07:00] LABS: ANION GAP 11 (8-16); BLOOD UREA NITROGEN 20 mg/dL (7-18); CALCIUM 8.3 mg/dL (8.5-10.1); CHLORIDE 106 mmol/L (98-107); CO2 25 mmol/L (21-32); CREATININE 1.5 mg/dL (0.7-1.3); GLUCOSE,RANDOM 82 mg/dL (74-106); SODIUM 142 mmol/L (136-145)
[2018-01-10] MEDS: THIAMINE HCL 200 MG/2 ML VIAL IVPB SCH (09:23)
[2018-01-10] MEDS: PANTOPRAZOLE SODIUM 40 MG VIAL IVPUSH SCH (09:23)
[2018-01-10 10:55] LABS: ALBUMIN 3.4 g/dl (3.4-5.0); ALK PHOS 54 U/L (45-117); BILIRUBIN,DIRECT 0.4 mg/dL (0.0-0.2); BILIRUBIN,TOTAL 1.5 mg/dL (0.2-1.0); SGOT/AST 65 U/L (15-37); SGPT/ALT 40 U/L (12-78); TOT PROT 6.4 g/dl (6.4-8.2)
[2018-01-10 10:56] LABS: LIPASE 558 U/L (73-393)
[2018-01-10] MEDS ORDERED: chlordiazePOXIDE HCL 25 MG CAPSULE PO SCH (11:00)
--- NOTE | 2018-01-10 11:07 | EKG ---
Test Reason : Blood Pressure : / mmHG Vent. Rate : 086 BPM Atrial Rate : 086 BPM P-R Int : 152 ms QRS Dur : 088 ms QT Int : 370 ms P-R-T Axes : 060 036 046 degrees QTc Int : 442 ms NORMAL SINUS RHYTHM NONSPECIFIC T WAVE ABNORMALITY Confirmed by ALEXANDRA SMITH MD ([id number]) on 01/10/2018 11:06:39 AM Referred By: Confirmed By:ALEXANDRA SMITH MD
[2018-01-10 13:24] VITALS: BMI 22.8
[2018-01-10] MEDS: chlordiazePOXIDE HCL 25 MG CAPSULE PO PRN (13:25)
[2018-01-10] MEDS: SODIUM CHLORIDE 1,000 ML IV SCH (15:08)
[2018-01-10] MEDS: FOLIC ACID 5 MG/1 ML SQ SCH (15:37)
--- NOTE | 2018-01-10 16:00 | PN ---
Physical Exam: SUBJECTIVE: Patient seen and examined at bedside. admitted overnight. no complaints. pt hungry and asking for food. does not wish to enlist in a detox program at this time. one episode of vomit in ED. denies fever, chills, hallucinations, cp, SOB, abd pain, urinary sxs OBJECTIVE: Vital Signs Period Temp Pulse Resp BP Sys/Wright Pulse Ox Last 24 Hr 98.4 F-99.1 F 62-118 16-19 114-132/66-81 96-100 GENERAL: Awake, alert, and fully oriented, NAD HEAD: Normal with no signs of trauma. EYES: PERRLA, EOMI, sclera anicteric, conjunctiva clear. EARS, NOSE, THROAT: nares patent, oropharynx clear without exudates. MMM NECK: Normal range of motion, supple without lymphadenopathy, JVD, or masses. LUNGS: CTAB HEART: RRR, normal S1 and S2 without murmur, rub or gallop. ABDOMEN: Soft, NTND normoactive bowel sounds. MUSCULOSKELETAL: Normal range of motion at all joints. No bony deformities or tenderness. UPPER EXTREMITIES: 2+ pulses, warm, well-perfused. No cyanosis. No clubbing. No peripheral edema. LOWER EXTREMITIES: 2+ pulses, warm, well-perfused. No calf tenderness. No peripheral edema. NEUROLOGICAL: Cranial nerves II-XII intact. Normal speech. mild Tremors b/l. mild dysmetria PSYCHIATRIC: Cooperative. Good eye contact. Appropriate mood and affect. SKIN: Warm, dry, normal turgor, no rashes or lesions. Laboratory Results - last 24 hr 01/09/18 01/09/18 01/09/18 18:30 18:30 18:30 WBC 18.1 H RBC 3.96 L Hgb 13.1 Hct 38.8 MCV 98.0 H MCH 33.2 MCHC 33.9 RDW 13.3 Plt Count 198 MPV 9.3 Absolute Neuts (auto) 16.8 H Total Counted 100 Neutrophils % 93.3 H Neutrophils % (Manual) 92.0 H Band Neutrophils % 1.0 Lymphocytes % 1.3 L Lymphocytes % (Manual) 2.0 L Monocytes % 5.1 Monocytes % (Manual) 4 Eosinophils % 0.0 Basophils % 0.3 Nucleated RBC % 0 Differential Comment Man diff performed Platelet Estimate Adequate Platelet Comment PT with INR 11.00 INR 0.97 PTT (Actin FS) 24.8 L Sodium 144 Potassium 5.3 H D Chloride 106 Carbon Dioxide 21 Anion Gap 17 H BUN 17 Creatinine 1.6 H Creat Clearance w eGFR 44.62 Random Glucose 92 Calcium 9.3 Phosphorus 5.1 H Magnesium 1.8 Total Bilirubin 1.1 H Direct Bilirubin AST 69 H D ALT 41 D Alkaline Phosphatase 71 Troponin I Total Protein 8.1 Albumin 4.2 Lipase 475 H Urine Color Urine Appearance Urine pH Ur Specific [place] Urine Protein Urine Glucose (UA) Urine Ketones Urine Blood Urine Nitrite Urine Bilirubin Urine Urobilinogen Ur Leukocyte Esterase Urine WBC (Auto) Urine RBC (Auto) Ur Epithelial Cells Hyaline Casts Urine Mucus 01/09/18 01/09/18 01/10/18 18:30 21:50 06:00 WBC 9.9 RBC 3.41 L Hgb 11.7 Hct 33.4 L MCV 97.9 H MCH 34.1 H MCHC 34.9 RDW 13.2 Plt Count 150 D MPV 8.9 Absolute Neuts (auto) Total Counted Neutrophils % Neutrophils % (Manual) Band Neutrophils % Lymphocytes % Lymphocytes % (Manual) Monocytes % Monocytes % (Manual) Eosinophils % Basophils % Nucleated RBC % Differential Comment Platelet Estimate Platelet Comment PT with INR INR PTT (Actin FS) Sodium Potassium Chloride Carbon Dioxide Anion Gap BUN Creatinine Creat Clearance w eGFR Random Glucose Calcium Phosphorus Magnesium Total Bilirubin Direct Bilirubin AST ALT Alkaline Phosphatase Troponin I < 0.02 Total Protein Albumin Lipase Urine Color Yellow Urine Appearance Clear Urine pH 6.0 Ur Specific [place] 1.017 Urine Protein 1+ H Urine Glucose (UA) Negative Urine Ketones 1+ H Urine Blood Negative Urine Nitrite Negative Urine Bilirubin Negative Urine Urobilinogen Negative Ur Leukocyte Esterase Negative Urine WBC (Auto) 1 Urine RBC (Auto) <1 Ur Epithelial Cells Rare Hyaline Casts 16 Urine Mucus Rare 01/10/18 01/10/18 01/10/18 06:00 06:00 06:00 WBC RBC Hgb Hct MCV MCH MCHC RDW Plt Count MPV Absolute Neuts (auto) Total Counted Neutrophils % Neutrophils % (Manual) Band Neutrophils % Lymphocytes % Lymphocytes % (Manual) Monocytes % Monocytes % (Manual) Eosinophils % Basophils % Nucleated RBC % Differential Comment Platelet Estimate Platelet Comment PT with INR INR PTT (Actin FS) Sodium 142 Cancelled Potassium 4.0 D Cancelled Chloride 106 Cancelled Carbon Dioxide 25 Cancelled Anion Gap 11 Cancelled BUN 20 H Cancelled Creatinine 1.5 H Cancelled Creat Clearance w eGFR 48.07 Cancelled Random Glucose 82 Cancelled Calcium 8.3 L Cancelled Phosphorus 4.0 D Magnesium 2.0 Total Bilirubin 1.5 H Cancelled Direct Bilirubin 0.4 H D AST 65 H Cancelled ALT 40 Cancelled Alkaline Phosphatase 54 D Cancelled Troponin I Total Protein 6.4 Cancelled Albumin 3.4 Cancelled Lipase 558 H Cancelled Urine Color Urine Appearance Urine pH Ur Specific [place] Urine Protein Urine Glucose (UA) Urine Ketones Urine Blood Urine Nitrite Urine Bilirubin Urine Urobilinogen Ur Leukocyte Esterase Urine WBC (Auto) Urine RBC (Auto) Ur Epithelial Cells Hyaline Casts Urine Mucus Active Medications Generic Name Dose Route Start Last Admin Trade Name Freq PRN Reason Stop Dose Admin Chlordiazepoxide HCl 25 mg 01/10/18 09:47 01/10/18 13:25 Librium - PO 01/13/18 09:46 25 mg Q4H PRN Administration WITHDRAWAL(CONT SUBST) Folic Acid 1 mg 01/10/18 10:00 01/10/18 15:37 Folic Acid Injection - SQ 1 mg DAILY MARISSA Administration Heparin Sodium (Porcine) 5,000 unit 01/10/18 06:00 01/10/18 14:49 Heparin - SQ 5,000 unit TID MARISSA Administration Sodium Chloride 1,000 mls @ 100 mls/hr 01/09/18 22:30 01/10/18 15:08 Normal Saline - IV 100 mls/hr ASDIR MARIS[facility] Administration Ondansetron HCl 4 mg 01/10/18 03:00 01/10/18 15:43 Zofran Injection IVPB 4 mg Q6H-IV MARISSA Administration Pantoprazole Sodium 40 mg 01/10/18 10:00 01/10/18 09:23 Protonix Iv IVPUSH 40 mg DAILY MARISSA Administration Thiamine HCl 200 mg 01/10/18 10:00 01/10/18 09:23 Vitamin B1 Injection - IVPB 200 mg DAILY MARIS[facility] Administration ASSESSMENT/PLAN: Patient is a 57 year old male with past medical history of GERD and alcohol abuse, presented with multiple episodes of vomiting since this morning. #Nausea and vomiting w/ elevated WBC (18.1) with left shift - leukocytosis resolved -Questionable colitis vs likley gastroenteritis due to food poisoning and/or alcohol withdrawal -Lipase at 475, no abdominal pain -CT A/P - Questionable focal colitis of the distal sigmoid colon and rectum. no evidence of acute pancreatitis -leukocytosis resolved and afebrile, d/c Levaquin 500mg and Flagyl 500mg IV -if spikes fever, resume abx -IV fluids -Zofran 40 mg -advance diet as tolerated #Alcohol withdrawal syndrome: Patient presenting with b/l hand tremors and tongue fasciculations. last drink 01/08/18 -CIWA -librium prn, can initiate protocol if withdrawing -Thiamine and Folic acid -Fall risk precautions -advance diet as tolerated -currently declining detox -detox consult #MAYRA: Cr 1.6...1.5 -may be due to dehydration -IVF -Monitor Cr -avoid nephrotoxic agents - NSAIDs, aminoglycosides, contrast -Dr. Jon consult appreciated. -check urine lytes and guest experience captain -check renal ultrasound -check prt to guest experience captain ratio -repeat ua #Hyperkalemia: 5.3 - resolved -IV fluids -EKG #GERD -Protonix 40 mg #FEN -IV NS (0.9%) at 100ml/hr -replete prn -low sodium diet #Prophylaxis -Heparin 5000 units sq tid #Disposition - med-surg -full code Visit type - Emergency Visit Emergency Visit: Yes ED Registration Date: 01/09/18 Care time: The patient presented to the Emergency Department on the above date and was hospitalized for further evaluation of their emergent condition. - New Patient This patient is new to me today: Yes Date on this admission: 01/10/18 - Critical Care Critical Care patient: No
--- NOTE | 2018-01-10 16:38 | CONSULT ---
Consult Consult Specialty:: Nephrology Reason for Consultation:: MAYRA - History of Present Illness Chief Complaint: nausea and vomiting History of Present Illness: Pt is a 57 year old male with pmhx of GERD an etoh abuse who presented to the ER with nausea and vomiting. He is still drinking daily. I was called to evaluate him as he was found to have elevated creatinine. He denies history of CKD. He does regularly use nsaids. He denies shortness of breath or lower ext edema. He denies dysuria or hematuria. He did also complain of feeling light headed on admission. He feels better today. He also had loose stool. - History Source History Provided By: Patient, Medical Record - Past Medical History Gastrointestinal: Yes: GERD - Alcohol/Substance Use Hx Alcohol Use: Yes - Smoking History Smoking history: Former smoker Have you smoked in the past 12 months: No Aproximately how many cigarettes per day: 0 If you are a former smoker, when did you quit?: 20 yrs. ago Home Medications - Allergies Allergies/Adverse Reactions: Allergies Allergy/AdvReac Type Severity Reaction Status Date / Time No Known Allergies Allergy Verified 01/09/18 17:40 - Home Medications Home Medications: Ambulatory Orders Omeprazole Magnesium [Prilosec (OTC)] 20 mg PO DAILY 09/05/12 Family Disease History - Family Disease History Family Disease History: CA: Father (ALCOHOL,,LUNG CA), Other: Father, Mother (ALCOHOL), Brother (ALCOHOL,DSA), Sister (ALCOHOL,DSA) Review of Systems - Review of Systems Constitutional: reports: Malaise Eyes: reports: No Symptoms HENT: reports: No Symptoms Neck: reports: No Symptoms Cardiovascular: reports: No Symptoms Respiratory: reports: No Symptoms Gastrointestinal: reports: Diarrhea, Vomiting Genitourinary: reports: No Symptoms Musculoskeletal: reports: No Symptoms Integumentary: reports: No Symptoms Neurological: reports: No Symptoms Endocrine: reports: No Symptoms Hematology/Lymphatic: reports: No Symptoms Psychiatric: reports: No Symptoms Physical Exam Vital Signs: Vital Signs Temperature 98.5 F 01/10/18 13:11 Pulse Rate 66 01/10/18 13:11 Respiratory Rate 18 01/10/18 13:11 Blood Pressure 131/74 01/10/18 13:11 O2 Sat by Pulse Oximetry (%) 99 01/10/18 12:53 Constitutional: Yes: Calm Eyes: Yes: Conjunctiva Clear HENT: Yes: Atraumatic Cardiovascular: Yes: S1, S2 Respiratory: Yes: CTA Bilaterally Gastrointestinal: Yes: Soft Renal/: Yes: WNL Musculoskeletal: Yes: WNL Edema: No Integumentary: Yes: Tattoos Neurological: Yes: Oriented Psychiatric: Yes: Oriented Labs: CBC, BMP 01/10/18 06:00 01/10/18 06:00 Laboratory Tests 09/05/12 07/21/16 01/09/18 12:40 06:20 18:30 WBC 18.1 H Hgb 13.1 INR PTT (Actin FS) Sodium Potassium BUN Creatinine 0.8 0.9 Urine Protein Urine Ketones Urine Blood 01/09/18 01/09/18 01/09/18 18:30 18:30 21:50 WBC Hgb INR 0.97 PTT (Actin FS) 24.8 L Sodium 144 Potassium 5.3 H D BUN 17 Creatinine 1.6 H Urine Protein 1+ H Urine Ketones 1+ H Urine Blood Negative 01/10/18 01/10/18 06:00 06:00 WBC 9.9 Hgb 11.7 INR PTT (Actin FS) Sodium 142 Potassium 4.0 D BUN 20 H Creatinine 1.5 H Urine Protein Urine Ketones Urine Blood Imaging - Results Chest X-ray: Report Reviewed Problem List - Problems (1) MAYRA (acute kidney injury) Code(s): N17.9 - ACUTE KIDNEY FAILURE, UNSPECIFIED (2) Alcohol withdrawal Code(s): F10.239 - ALCOHOL DEPENDENCE WITH WITHDRAWAL, UNSPECIFIED Qualifiers: Complication of substance-induced condition: uncomplicated Qualified Code(s ): F10.230 - Alcohol dependence with withdrawal, uncomplicated (3) Diarrhea Code(s): R19.7 - DIARRHEA, UNSPECIFIED Qualifiers: Diarrhea type: unspecified type Qualified Code(s): R19.7 - Diarrhea, unspecified (4) Vomiting Code(s): R11.10 - VOMITING, UNSPECIFIED Qualifiers: Vomiting type: unspecified Vomiting Intractability: non-intractable Nausea presence: with nausea Qualified Code(s): R11.2 - Nausea with vomiting, unspecified Assessment/Plan Current Medications Generic Name Dose Route Start Last Admin Trade Name Freq PRN Reason Stop Dose Admin Chlordiazepoxide HCl 25 mg 01/10/18 09:47 01/10/18 13:25 Librium - PO 01/13/18 09:46 25 mg Q4H PRN Administration WITHDRAWAL(CONT SUBST) Folic Acid 1 mg 01/10/18 10:00 01/10/18 15:37 Folic Acid Injection - SQ 1 mg DAILY MARISSA Administration Heparin Sodium (Porcine) 5,000 unit 01/10/18 06:00 01/10/18 14:49 Heparin - SQ 5,000 unit TID MARISSA Administration Sodium Chloride 1,000 mls @ 100 mls/hr 01/09/18 22:30 01/10/18 15:08 Normal Saline - IV 100 mls/hr ASDIR MARISSA Administration Ondansetron HCl 4 mg 01/10/18 03:00 01/10/18 15:43 Zofran Injection IVPB 4 mg Q6H-IV MARISSA Administration Pantoprazole Sodium 40 mg 01/10/18 10:00 01/10/18 09:23 Protonix Iv IVPUSH 40 mg DAILY MARISSA Administration Thiamine HCl 200 mg 01/10/18 10:00 01/10/18 09:23 Vitamin B1 Injection - IVPB 200 mg DAILY MARISSA Administration Impression 1. MAYRA 2. etoh abuse 3. GERD 4. hyperkalemia 5. proteinuria Plan - check urine lytes and bander operator - cont fluids - repeat labs in am - check renal ultrasound - check prt to bander operator ratio - check repeat ua - may need more extensive workup if renal function does not improve tomorrow
--- NOTE | 2018-01-10 17:55 | PN ---
Teaching Attending Note Name of Resident: Rufus Hannon ATTENDING PHYSICIAN STATEMENT I saw and evaluated the patient. I reviewed the resident's note and discussed the case with the resident. I agree with the resident's findings and plan as documented with exceptions below. SUBJECTIVE: Patient seen and examined, reports one episode of vomiting and one episode of scant diarrhea, non bloody, none since. Hungry wants to eat. Denies any abdominal pain. OBJECTIVE: Vital Signs Period Temp Pulse Resp BP Sys/Wright Pulse Ox Last 24 Hr 98.4 F-98.7 F 62-118 17-19 114-132/66-78 96-100 Intake & Output 01/07/18 01/08/18 01/09/18 01/10/18 23:59 23:59 23:59 23:59 Intake Total 1000 20 Balance 1000 20 Weight 184 lb 168 lb 8 oz General: sitting in stretcher in no acute distress Chest: CTAB, no rales or wheezing Abdomen:soft, NT throughout, ND, positive bowel sounds Extremities: minimal fine tremors, no edema Active Medications Chlordiazepoxide HCl (Librium -) 25 mg PO Q4H PRN PRN Reason: WITHDRAWAL(CONT SUBST) Stop: 01/13/18 09:46 Last Admin: 01/10/18 13:25 Dose: 25 mg Folic Acid (Folic Acid Injection -) 1 mg SQ DAILY [facility] Last Admin: 01/10/18 15:37 Dose: 1 mg Heparin Sodium (Porcine) (Heparin -) 5,000 unit SQ TID [facility] Last Admin: 01/10/18 14:49 Dose: 5,000 unit Sodium Chloride (Normal Saline -) 1,000 mls @ 100 mls/hr IV ASDIR [facility] Last Admin: 01/10/18 15:08 Dose: 100 mls/hr Ondansetron HCl (Zofran Injection) 4 mg IVPB Q6H-IV [facility] Last Admin: 01/10/18 15:43 Dose: 4 mg Pantoprazole Sodium (Protonix Iv) 40 mg IVPUSH DAILY [facility] Last Admin: 01/10/18 09:23 Dose: 40 mg Thiamine HCl (Vitamin B1 Injection -) 200 mg IVPB DAILY [facility] Last Admin: 01/10/18 09:23 Dose: 200 mg ASSESSMENT AND PLAN: 57 yom with PMHX of ETOH abuse (Prior detox), GERD, admitted with nausea/ vomiting/diarrhea after eating 'hot dog' and ongoing alcohol use. -Nausea/vomiting/diarrhea, likely food poisoning vs self limiting gastroenteritis +/- alcoholic gastritis -ETOH abuse -MAYRA from hypovolumia vs CKD stage II -Hyperkalemia, resolved. Plan: CT a/p noted. WBC normalized without antibiotics. Hold off on levaquin/flagyl for now. Patient reports colonoscopy and hernia repair with surgeon ?Dr. Rodarte 2 years ago. Continue PPI. Librium prn. Detox consult. Patient not interested in quitting currently or detox. Has been to [facility] in the past, no interested in the same. REnal input appreciated. IVF. renal US. DVTPPX with heparin Dispo in 1-2 days if tolerating diet well, renal function improved and no new concerns. Plan discussed with patient in detail, all questions answered.
[2018-01-10] MEDS ORDERED: PT OWN MED DRAWER 7, Y5N ONE (23:02)
[2018-01-10] MEDS: chlordiazePOXIDE HCL 25 MG CAPSULE PO SCH (23:05)
[2018-01-10 23:17] LABS: URINE APPEARANCE CLEAR; URINE BILIRUBIN NEGATIVE (<2.0 mg/dL); URINE COLOR YELLOW; URINE GLUCOSE (UA) NEGATIVE (NEGATIVE); URINE KETONE NEGATIVE (NEGATIVE); URINE LEUK ESTERASE NEGATIVE (NEGATIVE); URINE NITRITE NEGATIVE (NEGATIVE); URINE PROTEIN NEGATIVE (NEGATIVE); URINE UROBILINOGEN NEGATIVE mg/dL (0.2-1.0)
[2018-01-10 23:29] LABS: RATIO URIN PROTEIN/URIN CREAT 0.13 MG/DL
[2018-01-11] MEDS: ONDANSETRON 4 MG/2 ML VIAL IVPB SCH ×4 (03:30→21:11)
[2018-01-11] MEDS: SODIUM CHLORIDE 1,000 ML IV SCH ×3 (03:30→22:35)
[2018-01-11] MEDS: chlordiazePOXIDE HCL 25 MG CAPSULE PO SCH ×2 (06:42→11:42)
[2018-01-11] MEDS: HEPARIN NA (PORCINE) 5,000 UNITS/ML 1ML VIAL SQ SCH ×3 (06:42→21:10)
[2018-01-11 07:42] LABS: BASO % 0.8 % (0-2.0); EOS % 0.4 % (0-4.5); HEMOGLOBIN 11.8 GM/dL (11.7-16.9); MCH 34.3 pg (25.7-33.7); MCHC 34.7 g/dl (32.0-35.9); MEAN CELL VOLUME 98.8 fl (80-96); MEAN PLT VOLUME 9.4 fl (7.5-11.1); MONO % 7.9 % (3.8-10.2); NEUT % 66.9 % (42.8-82.8); PLATELET COUNT 143 K/MM3 (134-434); RBC 3.44 M/mm3 (4.00-5.60); WHITE BLOOD COUNT 7.8 K/mm3 (4.0-10.0)
[2018-01-11 08:06] LABS: INR 1.04 (0.83-1.09); PROTHROMBIN TIME (PATIENT) 11.7 SEC (9.7-13.0)
[2018-01-11] MEDS ORDERED: ACETAMINOPHEN 325 MG TABLET (FP) PO ONE (08:30)
[2018-01-11 08:55] LABS: ALBUMIN 3.1 g/dl (3.4-5.0); ANION GAP 9 (8-16); BLOOD UREA NITROGEN 13 mg/dL (7-18); CHLORIDE 107 mmol/L (98-107); CO2 24 mmol/L (21-32); GLUCOSE,RANDOM 85 mg/dL (74-106); POTASSIUM 3.8 mmol/L (3.5-5.1); SODIUM 140 mmol/L (136-145)
[2018-01-11 08:58] LABS: ALK PHOS 58 U/L (45-117); BILIRUBIN,TOTAL 1.3 mg/dL (0.2-1.0); CREATININE 1.1 mg/dL (0.7-1.3); PHOSPHOROUS 2.5 mg/dL (2.5-4.9); SGOT/AST 58 U/L (15-37); SGPT/ALT 37 U/L (12-78); TOT PROT 6.2 g/dl (6.4-8.2)
[2018-01-11] MEDS ORDERED: PT OWN MED DRAWER 7, Y5N ONE (09:30)
[2018-01-11] MEDS: PANTOPRAZOLE SODIUM 40 MG VIAL IVPUSH SCH (09:39)
[2018-01-11] MEDS: THIAMINE HCL 200 MG/2 ML VIAL IVPB SCH (09:39)
[2018-01-11] MEDS: FOLIC ACID 5 MG/1 ML SQ SCH (09:50)
--- NOTE | 2018-01-11 10:44 | CONSULT ---
Consult Detox [facility] Reason for Current Admission/Consult: h/o alcohol use in withdrawal - History History of Present Illness: Pt states has been using alcohol for about 45 years, increasing use over this time. Recently drinking 6-8 bottles on 16-18oz/day. PT admitted for gastroenteritis- which has improved since admission with fluids/ vitamins. Pt is on librium detox protocol - History Source History Provided By: Patient Limitations to Obtaining History: No Limitations - Alcohol/Substance Use Hx Alcohol Use: Yes (has been in detox and rehab several times) - Past Medical History Gastrointestinal: Yes: GERD - Significant Medical Findings: pt is doing well now- on librium protocol CIWA Score - CIWA Score Nausea/Vomitin-No Nausea/No Vomiting Muscle Tremors: None Anxiety: 0-No Anxiety, at Ease Agitation: 0-Normal Activity Paroxysmal Sweats: No Perspiration Orientation: 0-Oriented Tacttile Disturbances: 0-None Auditory Disturbances: 0-None Visual Disturbances: 0-None Headache: 2-Mild CIWA-Ar Total Score: 2 Assessment Plan - Diagnosis (1) Alcohol withdrawal Status: Acute Qualifiers: Complication of substance-induced condition: uncomplicated Qualified Code(s ): F10.230 - Alcohol dependence with withdrawal, uncomplicated (2) Alcohol dependence with uncomplicated withdrawal Status: Chronic - Plan Plan: Pt states would like to stop drinking. Doing well with the detox protocol. Pt does not want to go to rehab. Works at [employer]. d/w pt medication options to help with alcohol addiction Rx: pt states will use naltrexone- had a doc who prescribed it for him in the past d/w pt to eat whole foods, good B12 and Bcomplex vitamins - Medication Detox Regimen/Protocol: Librium
[2018-01-11] MEDS ORDERED: chlordiazePOXIDE HCL 25 MG CAPSULE PO SCH ×3 (11:00→23:00)
--- NOTE | 2018-01-11 12:56 | PN ---
Teaching Attending Note Name of Resident: Jonathan Singleton ATTENDING PHYSICIAN STATEMENT I saw and evaluated the patient. I reviewed the resident's note and discussed the case with the resident. I agree with the resident's findings and plan as documented with exceptions below. SUBJECTIVE: patient doing well, no further nausea/vomiting/diarrhea noted. Tolerating diet. OBJECTIVE: Vital Signs Period Temp Pulse Resp BP Sys/Wright Pulse Ox Last 24 Hr 98.4 F-99.4 F 54-89 18-20 106-131/64-74 98 Intake & Output 01/08/18 01/09/18 01/10/18 01/11/18 23:59 23:59 23:59 23:59 Intake Total 1000 220 380 Output Total 300 Balance 1000 220 80 Weight 184 lb 168 lb 8 oz General: sitting in bed in no acute distress Abdomen:Soft, NT, ND, positive bowel sounds extremities; no tremors Active Medications Chlordiazepoxide HCl (Librium -) 25 mg PO Q4H PRN PRN Reason: WITHDRAWAL(CONT SUBST) Stop: 01/13/18 09:46 Last Admin: 01/10/18 13:25 Dose: 25 mg Chlordiazepoxide HCl (Librium -) 15 mg PO [id number] [facility] Stop: 01/12/18 05:01 Chlordiazepoxide HCl (Librium -) 10 mg PO [id number] [facility] Stop: 01/12/18 23:01 Folic Acid (Folic Acid Injection -) 1 mg SQ DAILY [facility] Last Admin: 01/11/18 09:50 Dose: 1 mg Heparin Sodium (Porcine) (Heparin -) 5,000 unit SQ TID [facility] Last Admin: 01/11/18 06:42 Dose: 5,000 unit Sodium Chloride (Normal Saline -) 1,000 mls @ 100 mls/hr IV ASDIR [facility] Last Admin: 01/11/18 03:30 Dose: 100 mls/hr Ondansetron HCl (Zofran Injection) 4 mg IVPB Q6H-IV [facility] Last Admin: 01/11/18 09:38 Dose: 4 mg Pantoprazole Sodium (Protonix Iv) 40 mg IVPUSH DAILY [facility] Last Admin: 01/11/18 09:39 Dose: 40 mg Thiamine HCl (Vitamin B1 Injection -) 200 mg IVPB DAILY [facility] Last Admin: 01/11/18 09:39 Dose: 200 mg Laboratory Results - last 24 hr 01/10/18 01/10/18 01/10/18 19:30 22:50 22:50 WBC RBC Hgb Hct MCV MCH MCHC RDW Plt Count MPV Absolute Neuts (auto) Neutrophils % Lymphocytes % Monocytes % Eosinophils % Basophils % Nucleated RBC % PT with INR INR PTT (Actin FS) 41.2 H Sodium Potassium Chloride Carbon Dioxide Anion Gap BUN Creatinine Creat Clearance w eGFR Random Glucose Calcium Phosphorus Magnesium Total Bilirubin AST ALT Alkaline Phosphatase Total Protein Albumin Urine Color Urine Appearance Urine pH Ur Specific [place] Urine Protein Urine Glucose (UA) Urine Ketones Urine Blood Urine Nitrite Urine Bilirubin Urine Urobilinogen Ur Leukocyte Esterase U Random Total Protein 14 H Ur Random Sodium 83 Ur Random Potassium 28.9 Ur Random Chloride 93 Urine Creatinine 106.0 Protein/Creatinin Ratio 0.13 01/10/18 01/11/18 01/11/18 22:50 07:00 07:00 WBC 7.8 RBC 3.44 L Hgb 11.8 Hct 34.0 L MCV 98.8 H MCH 34.3 H MCHC 34.7 RDW 13.0 Plt Count 143 MPV 9.4 Absolute Neuts (auto) 5.2 Neutrophils % 66.9 D Lymphocytes % 24.0 D Monocytes % 7.9 Eosinophils % 0.4 D Basophils % 0.8 Nucleated RBC % 0 PT with INR INR PTT (Actin FS) Sodium 140 Potassium 3.8 Chloride 107 Carbon Dioxide 24 Anion Gap 9 BUN 13 Creatinine 1.1 Creat Clearance w eGFR > 60 Random Glucose 85 Calcium 8.0 L Phosphorus 2.5 D Magnesium 2.0 Total Bilirubin 1.3 H AST 58 H ALT 37 Alkaline Phosphatase 58 Total Protein 6.2 L Albumin 3.1 L Urine Color Yellow Urine Appearance Clear Urine pH 5.0 Ur Specific [place] 1.014 Urine Protein Negative Urine Glucose (UA) Negative Urine Ketones Negative Urine Blood Negative Urine Nitrite Negative Urine Bilirubin Negative Urine Urobilinogen Negative Ur Leukocyte Esterase Negative U Random Total Protein Ur Random Sodium Ur Random Potassium Ur Random Chloride Urine Creatinine Protein/Creatinin Ratio 01/11/18 07:00 WBC RBC Hgb Hct MCV MCH MCHC RDW Plt Count MPV Absolute Neuts (auto) Neutrophils % Lymphocytes % Monocytes % Eosinophils % Basophils % Nucleated RBC % PT with INR 11.70 INR 1.04 PTT (Actin FS) Sodium Potassium Chloride Carbon Dioxide Anion Gap BUN Creatinine Creat Clearance w eGFR Random Glucose Calcium Phosphorus Magnesium Total Bilirubin AST ALT Alkaline Phosphatase Total Protein Albumin Urine Color Urine Appearance Urine pH Ur Specific [place] Urine Protein Urine Glucose (UA) Urine Ketones Urine Blood Urine Nitrite Urine Bilirubin Urine Urobilinogen Ur Leukocyte Esterase U Random Total Protein Ur Random Sodium Ur Random Potassium Ur Random Chloride Urine Creatinine Protein/Creatinin Ratio ASSESSMENT AND PLAN: 57 yom with PMHX of ETOH abuse (Prior detox), GERD, admitted with nausea/ vomiting/diarrhea after eating 'hot dog' and ongoing alcohol use. -Nausea/vomiting/diarrhea, likely food poisoning vs self limiting gastroenteritis +/- alcoholic gastritis -ETOH abuse -MAYRA from hypovolumia -Hyperkalemia, resolved. Plan: CT a/p noted. WBC normalized without antibiotics. symptoms resolved. PO as tolerated. Patient reports colonoscopy and hernia repair with surgeon ?Dr. Rodarte 2 years ago. Continue PPI. Librium prn. Detox consult noted. Librium detox. REnal input appreciated. Cr normalized. Follow up renal US. DVTPPX with heparin Dispo in 1-2 days if tolerating diet well, renal function improved and no new concerns. Plan discussed with patient in detail, all questions answered.
--- NOTE | 2018-01-11 13:45 | PN ---
Physical Exam: SUBJECTIVE: Patient seen and examined at bedside. Complaint of headache. OBJECTIVE: Vital Signs Period Temp Pulse Resp BP Sys/Wright Pulse Ox Last 24 Hr 98.4 F-99.4 F 54-89 18-20 106-119/64-73 98 Gen: NAD, comfortably lying in bed, no signs of withdrawal HEENT: NCAT Neck: supple, no jvd Cardio: rrr, no jvd Lungs: cta b/l Abd: soft, nontender Ext: no tremor. No edema. Laboratory Results - last 24 hr 01/10/18 01/10/18 01/10/18 19:30 22:50 22:50 WBC RBC Hgb Hct MCV MCH MCHC RDW Plt Count MPV Absolute Neuts (auto) Neutrophils % Lymphocytes % Monocytes % Eosinophils % Basophils % Nucleated RBC % PT with INR INR PTT (Actin FS) 41.2 H Sodium Potassium Chloride Carbon Dioxide Anion Gap BUN Creatinine Creat Clearance w eGFR Random Glucose Calcium Phosphorus Magnesium Total Bilirubin AST ALT Alkaline Phosphatase Total Protein Albumin Urine Color Urine Appearance Urine pH Ur Specific [place] Urine Protein Urine Glucose (UA) Urine Ketones Urine Blood Urine Nitrite Urine Bilirubin Urine Urobilinogen Ur Leukocyte Esterase U Random Total Protein 14 H Ur Random Sodium 83 Ur Random Potassium 28.9 Ur Random Chloride 93 Urine Creatinine 106.0 Protein/Creatinin Ratio 0.13 01/10/18 01/11/18 01/11/18 22:50 07:00 07:00 WBC 7.8 RBC 3.44 L Hgb 11.8 Hct 34.0 L MCV 98.8 H MCH 34.3 H MCHC 34.7 RDW 13.0 Plt Count 143 MPV 9.4 Absolute Neuts (auto) 5.2 Neutrophils % 66.9 D Lymphocytes % 24.0 D Monocytes % 7.9 Eosinophils % 0.4 D Basophils % 0.8 Nucleated RBC % 0 PT with INR INR PTT (Actin FS) Sodium 140 Potassium 3.8 Chloride 107 Carbon Dioxide 24 Anion Gap 9 BUN 13 Creatinine 1.1 Creat Clearance w eGFR > 60 Random Glucose 85 Calcium 8.0 L Phosphorus 2.5 D Magnesium 2.0 Total Bilirubin 1.3 H AST 58 H ALT 37 Alkaline Phosphatase 58 Total Protein 6.2 L Albumin 3.1 L Urine Color Yellow Urine Appearance Clear Urine pH 5.0 Ur Specific [place] 1.014 Urine Protein Negative Urine Glucose (UA) Negative Urine Ketones Negative Urine Blood Negative Urine Nitrite Negative Urine Bilirubin Negative Urine Urobilinogen Negative Ur Leukocyte Esterase Negative U Random Total Protein Ur Random Sodium Ur Random Potassium Ur Random Chloride Urine Creatinine Protein/Creatinin Ratio 01/11/18 07:00 WBC RBC Hgb Hct MCV MCH MCHC RDW Plt Count MPV Absolute Neuts (auto) Neutrophils % Lymphocytes % Monocytes % Eosinophils % Basophils % Nucleated RBC % PT with INR 11.70 INR 1.04 PTT (Actin FS) Sodium Potassium Chloride Carbon Dioxide Anion Gap BUN Creatinine Creat Clearance w eGFR Random Glucose Calcium Phosphorus Magnesium Total Bilirubin AST ALT Alkaline Phosphatase Total Protein Albumin Urine Color Urine Appearance Urine pH Ur Specific [place] Urine Protein Urine Glucose (UA) Urine Ketones Urine Blood Urine Nitrite Urine Bilirubin Urine Urobilinogen Ur Leukocyte Esterase U Random Total Protein Ur Random Sodium Ur Random Potassium Ur Random Chloride Urine Creatinine Protein/Creatinin Ratio Active Medications Generic Name Dose Route Start Last Admin Trade Name Freq PRN Reason Stop Dose Admin Chlordiazepoxide HCl 25 mg 01/10/18 09:47 01/10/18 13:25 Librium - PO 01/13/18 09:46 25 mg Q4H PRN Administration WITHDRAWAL(CONT SUBST) Chlordiazepoxide HCl 15 mg 01/11/18 17:00 Librium - PO 01/12/18 05:01 [id number] MARISSA Chlordiazepoxide HCl 10 mg 01/12/18 11:00 Librium - PO 01/12/18 23:01 [id number] MARISSA Folic Acid 1 mg 01/10/18 10:00 01/11/18 09:50 Folic Acid Injection - SQ 1 mg DAILY MARISSA Administration Heparin Sodium (Porcine) 5,000 unit 01/10/18 06:00 01/11/18 13:28 Heparin - SQ 5,000 unit TID MARISSA Administration Sodium Chloride 1,000 mls @ 100 mls/hr 01/09/18 22:30 01/11/18 03:30 Normal Saline - IV 100 mls/hr ASDIR MARISSA Administration Ondansetron HCl 4 mg 01/10/18 03:00 01/11/18 09:38 Zofran Injection IVPB 4 mg Q6H-IV MARISSA Administration Pantoprazole Sodium 40 mg 01/10/18 10:00 01/11/18 09:39 Protonix Iv IVPUSH 40 mg DAILY MARISSA Administration Thiamine HCl 200 mg 01/10/18 10:00 01/11/18 09:39 Vitamin B1 Injection - IVPB 200 mg DAILY MARISSA Administration ASSESSMENT/PLAN: Patient is a 57 year old male with past medical history of GERD and alcohol abuse, presented with multiple episodes of nasea, vomiting, and diarrhea since this morning. #Nausea, vomiting, diarrhea: resolved -Initially w/ leukocytosis -Questionable colitis vs likley gastroenteritis due to food poisoning and/or alcohol withdrawal -Lipase at 475, no abdominal pain -CT A/P - Questionable focal colitis of the distal sigmoid colon and rectum. no evidence of acute pancreatitis -received Levaquin 500mg and Flagyl 500mg IV -if spikes fever, resume abx -IV fluids -Zofran 40 mg -advance diet as tolerated #Alcohol withdrawal -Patient presenting with b/l hand tremors and tongue fasciculations. last drink 01/08/18 -detox consult (Dr. Ching) -librium protocol -Thiamine and Folic acid -Fall risk precautions -advance diet as tolerated -currently declining inpt detox. Per Detox specialist, plan to possibly treat with Naltrexone as outpt #MAYRA -[employer] Client Solutions Analyst initially 1.6 -no hx kidney disease -may be due to dehydration -IVF -Monitor Cr -avoid nephrotoxic agents - NSAIDs, aminoglycosides, contrast -Dr. Jon consult appreciated. 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
--- NOTE | 2018-01-11 14:36 | PN ---
Progress Note (short form) - Note Progress Note: problems 1. MAYRA 2. etoh abuse 3. GERD 4. hyperkalemia 5. proteinuria Current Medications Chlordiazepoxide HCl (Librium -) 25 mg PO Q4H PRN PRN Reason: WITHDRAWAL(CONT SUBST) Stop: 01/13/18 09:46 Last Admin: 01/10/18 13:25 Dose: 25 mg Chlordiazepoxide HCl (Librium -) 15 mg PO [id number] [facility] Stop: 01/12/18 05:01 Chlordiazepoxide HCl (Librium -) 10 mg PO [id number] [facility] Stop: 01/12/18 23:01 Folic Acid (Folic Acid Injection -) 1 mg SQ DAILY [facility] Last Admin: 01/11/18 09:50 Dose: 1 mg Heparin Sodium (Porcine) (Heparin -) 5,000 unit SQ TID [facility] Last Admin: 01/11/18 13:28 Dose: 5,000 unit Sodium Chloride (Normal Saline -) 1,000 mls @ 100 mls/hr IV ASDIR [facility] Last Admin: 01/11/18 03:30 Dose: 100 mls/hr Ondansetron HCl (Zofran Injection) 4 mg IVPB Q6H-IV [facility] Last Admin: 01/11/18 09:38 Dose: 4 mg Pantoprazole Sodium (Protonix Iv) 40 mg IVPUSH DAILY [facility] Last Admin: 01/11/18 09:39 Dose: 40 mg Thiamine HCl (Vitamin B1 Injection -) 200 mg IVPB DAILY [facility] Last Admin: 01/11/18 09:39 Dose: 200 mg Last Vital Signs Temp Pulse Resp BP Pulse Ox 98.4 F 77 20 106/64 98 01/11/18 10:00 01/11/18 10:00 01/11/18 10:00 01/11/18 10:00 01/11/18 09:00 CBC, BMP 01/11/18 07:00 01/11/18 07:00 IMP- renal function improved Plan - 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
[2018-01-11] MEDS: chlordiazePOXIDE 5 MG CAPSULE PO SCH (17:01)
[2018-01-12] MEDS: chlordiazePOXIDE 5 MG CAPSULE PO SCH ×2 (00:07→05:16)
[2018-01-12] MEDS: ONDANSETRON 4 MG/2 ML VIAL IVPB SCH ×3 (02:28→14:27)
[2018-01-12] MEDS: HEPARIN NA (PORCINE) 5,000 UNITS/ML 1ML VIAL SQ SCH ×2 (05:17→14:32)
[2018-01-12 09:20] VITALS: TEMP 98.2
--- NOTE | 2018-01-12 09:21 | PN ---
Physical Exam: SUBJECTIVE: Patient seen and examined OBJECTIVE: Vital Signs Period Temp Pulse Resp BP Sys/Wright Pulse Ox Last 24 Hr 98.2 F-98.9 F 63-77 18-20 106-124/63-88 98 GENERAL: Active Medications Generic Name Dose Route Start Last Admin Trade Name Freq PRN Reason Stop Dose Admin Chlordiazepoxide HCl 25 mg 01/10/18 09:47 01/10/18 13:25 Librium - PO 01/13/18 09:46 25 mg Q4H PRN Administration WITHDRAWAL(CONT SUBST) Chlordiazepoxide HCl 10 mg 01/12/18 11:00 Librium - PO 01/12/18 23:01 [id number] MARISSA Folic Acid 1 mg 01/10/18 10:00 01/11/18 09:50 Folic Acid Injection - SQ 1 mg DAILY MARISSA Administration Heparin Sodium (Porcine) 5,000 unit 01/10/18 06:00 01/12/18 05:17 Heparin - SQ 5,000 unit TID MARISSA Administration Sodium Chloride 1,000 mls @ 100 mls/hr 01/09/18 22:30 01/11/18 22:35 Normal Saline - IV Not Given ASDIR MARISSA Ondansetron HCl 4 mg 01/10/18 03:00 01/12/18 02:28 Zofran Injection IVPB 4 mg Q6H-IV MARISSA Administration Pantoprazole Sodium 40 mg 01/10/18 10:00 01/11/18 09:39 Protonix Iv IVPUSH 40 mg DAILY MARISSA Administration Thiamine HCl 200 mg 01/10/18 10:00 01/11/18 09:39 Vitamin B1 Injection - IVPB 200 mg DAILY MARISSA Administration ASSESSMENT/PLAN: 57 yom with PMHX of ETOH abuse (Prior detox), GERD, admitted with nausea/ vomiting/diarrhea after eating 'hot dog' and ongoing alcohol use. -Nausea/vomiting/diarrhea, likely food poisoning vs self limiting gastroenteritis +/- alcoholic gastritis -ETOH abuse -MAYRA from hypovolumia -Hyperkalemia, resolved. Plan: CT a/p noted. WBC normalized without antibiotics. symptoms resolved. PO as tolerated. Patient reports colonoscopy and hernia repair with surgeon ?Dr. Rodarte 2 years ago. Continue PPI. Librium prn. No withdrawal concerns, finishing librium detox today. REnal input appreciated. Cr normalized. Follow up renal US. DVTPPX with heparin Dispo in 1-2 days if tolerating diet well, renal function improved and no new concerns. Plan discussed with patient in detail, all questions answered.
[2018-01-12] MEDS: PANTOPRAZOLE SODIUM 40 MG VIAL IVPUSH SCH (09:35)
[2018-01-12] MEDS: THIAMINE HCL 200 MG/2 ML VIAL IVPB SCH (09:36)
[2018-01-12] MEDS ORDERED: ACETAMINOPHEN 325 MG TABLET (FP) PO PRN (10:48)
[2018-01-12] MEDS ORDERED: chlordiazePOXIDE HCL 10 MG CAPSULE PO SCH (11:00)
[2018-01-12] MEDS ORDERED: chlordiazePOXIDE 5 MG CAPSULE PO SCH ×4 (11:00→23:00)
[2018-01-12] MEDS: chlordiazePOXIDE HCL 25 MG CAPSULE PO PRN (11:22)
[2018-01-12] MEDS: FOLIC ACID 5 MG/1 ML SQ SCH (11:22)
[2018-01-12 15:37] VITALS: BP 127/94; PULSE 78
[2018-01-12] MEDS ORDERED: chlordiazePOXIDE 5 MG CAPSULE ONE (15:52)
[2018-01-12] MEDS ORDERED: chlordiazePOXIDE HCL 10 MG CAPSULE PO ONE (16:00)
--- NOTE | 2018-01-12 17:01 | DS ---
Physical Exam: SUBJECTIVE: Patient seen and examined OBJECTIVE: Vital Signs Period Temp Pulse Resp BP Sys/Wright Pulse Ox Last 24 Hr 98.2 F-98.9 F 63-78 18-20 114-143/66-94 98-98 PHYSICAL EXAM GENERAL: The patient is awake, alert, and fully oriented, in no acute distress. HEAD: Normal with no signs of trauma. EYES: PERRL, extraocular movements intact, sclera anicteric, conjunctiva clear. ENT: Ears normal, nares patent, oropharynx clear without exudates, moist mucous membranes. NECK: Trachea midline, full range of motion, supple. LUNGS: Breath sounds equal, clear to auscultation bilaterally, no wheezes, no crackles, no accessory muscle use. HEART: Regular rate and rhythm, S1, S2 without murmur, rub or gallop. ABDOMEN: Soft, nontender, nondistended, normoactive bowel sounds, no guarding, no rebound, no hepatosplenomegaly, no masses. EXTREMITIES: 2+ pulses, warm, well-perfused, no edema. NEUROLOGICAL: Cranial nerves II through XII grossly intact. Normal speech, gait not observed. PSYCH: Normal mood, normal affect. SKIN: Warm, dry, normal turgor, no rashes or lesions noted. LABS HOSPITAL COURSE: Date of Admission:01/09/18 Date of Discharge: 01/12/18 Minutes to complete discharge: 45 Discharge Summary Reason For Visit: ALCOHOL DEPENDENCE W/UNCOMPLICATED WITHDRAWAL Hospital Course: 57 yom with PMHX of ETOH abuse (Prior detox), GERD, admitted with nausea/ vomiting/diarrhea after eating 'hot dog' and ongoing alcohol use. His CT scan on admission showed questionable focal colitis in sigmoid colon and rectum. Patient had leucocytosis on admission that resolved in 24 hours with hydration, supportive treatment and protonix. His symptoms also resolved within 12 hours of admission again suggestive of food poisoning/ gastroenteritis with some alcoholic gastritis. He received aggressive hydration with normalization of his creatinine. Renal was consulted. He had renal ultrasound, preliminary result is negative for any concerns. He had mild hyperkalemia that resolved with hydration. He had mild tremors on admission, was placed librium detox protocol with no further concerns for alchol withdrawal. He was seen by detox consultation Dr Ching, he declined [facility] rehab but was agreable to follow up with his detox specialist in [place] to discuss Naltrexone treatment. Patient currently is tolerating diet well with no further GI symptoms, normal creatinine and no concerns for alcohol withdrawal. He is being discharged home in stable condition and instructions were discussed in detail with him and he relayed understanding. Condition: Good - Instructions Diet, Activity, Other Instructions: You were in the hospital because of nausea, vomiting, and diarrhea. You had a CAT scan done and you were given fluids and some antibiotics. You were seen by a detox specialist about your alcohol use. She recommended you try naltrexone as an out patient. You are recommended outpatient follow up with [facility] to discuss routine colonscopy in 6-8 weeks. Contact information has been provided, please call on discharge for the same. Please ensure to maintain adequate hyration. Strongly advise alcohol cessation. Please follow up with your detox doctor in [place] to discuss Naltrexone and further treatment. Call 911 or come to [facility] if you notice any new fevers, chills, belly pain, nausea , vomiting, diarrhea, inability to eat, or new concerns. Referrals: Paulo More MD [Staff Physician] - 3 Weeks Loraine Ching MD [Staff Physician] - Disposition: HOME - Home Medications Comprehensive Discharge Medication List: Ambulatory Orders Omeprazole Magnesium [Prilosec (OTC)] 20 mg PO DAILY 09/05/12 Multivitamin [Daily Multiple Vitamin] 1 each PO DAILY #30 tablet 01/12/18 This patient is new to me today: No Emergency Visit: Yes ED Registration Date: 01/09/18 Care time: The patient presented to the Emergency Department on the above date and was hospitalized for further evaluation of their emergent condition. Critical Care patient: No - Discharge Referral Referred to [facility] Med P.C.: No
[2018-01-13] MEDS ORDERED: chlordiazePOXIDE HCL 10 MG CAPSULE PO SCH ×4 (05:00→23:00)
--- NOTE | 2018-01-20 10:26 | EKG ---
Test Reason : Blood Pressure : / mmHG Vent. Rate : 114 BPM Atrial Rate : 114 BPM P-R Int : 146 ms QRS Dur : 074 ms QT Int : 334 ms P-R-T Axes : 061 047 055 degrees QTc Int : 460 ms SINUS TACHYCARDIA OTHERWISE NORMAL ECG WHEN COMPARED WITH ECG OF 20-JUL-2016 13:40, NO SIGNIFICANT CHANGE WAS FOUND Confirmed by AURA LEMA MD ([id number]) on 01/20/2018 10:25:27 AM Referred By: Confirmed By:AURA LEMA MD
== END 2018-01-12 16:37 | disposition home or self-care (01) | DRG 460 ==
LOC: JER 17:30 → JERBED 22:30 → J8W 01-10 12:29
PROVIDERS: ADMIT Internal Medicine; ATTEND Hospitalist
PROC: HZ2ZZZZ Detoxification Services for Substance Abuse Treatment (ICD-10-PCS; principal; 2018-01-11)
DX: N17.9 Acute kidney failure, unspecified (principal); E87.5 Hyperkalemia; K52.9 Noninfective gastroenteritis and colitis, unspecified; A05.9 Bacterial foodborne intoxication, unspecified; E86.0 Dehydration; F10.230 Alcohol dependence with withdrawal, uncomplicated; K29.20 Alcoholic gastritis without bleeding; K21.9 Gastro-esophageal reflux disease without esophagitis; R80.9 Proteinuria, unspecified; Z87.891 Personal history of nicotine dependence
CPT/HCPCS: 36415; 71045-TC-FY; 74176-TC; 76775-TC; 80048; 80053; 80076; 81003; 81015; 82436; 82570; 83690; 83735; 84100; 84133; 84156; 84300; 84484; 85025; 85027; 85610; 85730; 87086; 93005; 93010; 99285-25; J1644; J7030